=== PATIENT | male | born 1950 | race Caucasian/White ===

== ENCOUNTER 2018-02-26 02:46 | Outpatient (CLI) | payer MEDICARE ==
[~2018-02-26] VITALS: Ht 185.4 cm; Wt 84.1 kg
--- NOTE | ~2018-02-26 | OP ---
PATIENT NAME: Joe BIRCH MEDICAL RECORD: [id number] :54 LOCATION:D.M2 D.2132 ADMISSION DATE:02/26/18 SURGEON: ANA FAJARDO MD DATE OF OPERATION: 02/26/2018 PROCEDURE: Left heart catheterization, selective coronary angiography, PTCA stent report. FINDINGS: Left ventriculography in 30-degree BUENO view, normal wall motion and normal systolic function. CORONARY ANATOMY: LEFT MAIN: Left main is free of disease. LAD: LAD has a tight 90% stenosis with a thrombus burden in its proximal portion. CIRCUMFLEX: Circumflex has an 80% stenosis after takeoff of the OM. RIGHT CORONARY ARTERY: The right coronary artery is a somewhat rudimentary vessel with diffuse disease. IMPRESSION: We will plan intervention of LAD. Circumflex at a later date. DESCRIPTION OF PROCEDURE: A 5-Indonesian sheath was changed for a 6-Indonesian sheath. XB LAD guiding catheter provided good guide catheter support followed by 300 cm Whisper wire was placed across the occluded LAD down a portion of this vessel. A 3.0 x 12 mm Morehouse was used pre-deployment. Stent deployed was a 12-mm 3.0 Integrity up to 14 atmospheres. Final angiography showed excellent resolution of 90% stenosis, no significant residual. MEHDI flow was 3 throughout the procedure. Integrilin was used during the case. Sheath closed with ExoSeal. He will be brought back at a later date for the circumflex. TRANSINT:[id number] Voice Confirmation ID: [id number] DOCUMENT ID: [id number] ANA FAJARDO MD at 0826 CC: [id number] DICTATION DATE: 02/26/18 0848 PREPARED FOODS SUPERVISOR: 02/26/18 1212 DIS IN 02/26/18 [facility] [address] [id number]
--- NOTE | ~2018-02-26 | HP ---
PATIENT: Joe BIRCH MEDICAL RECORD: [id number] ACCOUNT: [id number] LOCATION:[address] : 54 ADMISSION DATE: 02/26/18 HISTORY AND PHYSICAL EXAMINATION HISTORY OF PRESENT ILLNESS: A 67-year-old gentleman with longstanding smoking history, history of obstructive pulmonary disease, transferred from [place] with NSTEMI. Presented with chest pain. There was a pleuritic component; however, CTA showed no evidence of pulmonary embolus. Enzymes continued to rise. Currently pain free. ECG shows mostly ST-T changes. lab animal technologist for further evaluation. PAST MEDICAL HISTORY: 1. History of hypertension. 2. Hyperlipidemia. 3. Obstructive pulmonary disease. ALLERGIES: None known. SOCIAL HISTORY: Lives at [place]. He is able to take care of his ADLs. He does smoke more than a pack a day. REVIEW OF SYSTEMS: The patient reports easy bruising but reports no swollen glands. The patient reports no fever, no night sweats, no significant weight gain, no significant weight loss. No significant exercise tolerance. The patient reports no dry eyes, no irritation, no vision change. Patient reports no difficulty hearing and no ear pain. Patient reports no frequent nose bleeds or nose and sinus problems. Patient reports on arm pain on exertion. No shortness of breath while lying down. No history of heart murmur. Patient reports no cough, no wheezing or coughing up blood. Patient reports no abdominal pain, no vomiting. Normal appetite. No diarrhea and not vomiting blood. No nausea and no constipation. Patient reports no incontinence. No difficulty urinating. No hematuria. No increased frequency. Patient reports no muscle aches. No weakness, no arthralgias, no back pain. No swelling of the extremities. Patient reports no abnormal mole, no jaundice, no rashes. Reports no loss of consciousness. No weakness and no numbness. No seizures, dizziness, or headaches. The patient reports no depression, no sleep disturbance, feeling safe in a relationship and no alcohol abuse. Patient reports on fatigue. Reports no runny nose or sinus pressure. No itching, no hives, and no frequent sneezing. PHYSICAL EXAMINATION: GENERAL: Somewhat unkempt gentleman, in no acute distress. VITAL SIGNS: Blood pressure 138/87, pulse 76 and regular. HEENT: Normocephalic, atraumatic. NECK: No JVD or bruit. HEART: Distant, II/ systolic ejection murmur. LUNGS: Prolonged respiratory phase with expiratory wheezes. ABDOMEN: Soft, nontender. EXTREMITIES: Pulses 2+. There is no edema. IMPRESSION: STEMI, obstructive pulmonary disease. PLAN: Plan for angiography, intervention based on the above. HISTORY AND PHYSICAL [id number] Joe BIRCH TRANSINT:[id number] Voice Confirmation ID: [id number] DOCUMENT ID: [id number] ANA FAJARDO MD at 0826 CC: [id number] DICTATION DATE: 02/26/18 0740 RETORT FURNACE OPERATOR: 02/26/18 0900 DIS IN 02/26/18 [id number] [place] [address]
--- NOTE | ~2018-02-26 | HEMODYNAMI ---
PATIENT:Joe BIRCH MEDICAL RECORD: [id number] : 54 [address] [id number] ADMISSION DATE: 02/26/18 Generatedon:02/26/20188:50 Patient name: Joe BIRCH Patient #: [id number] SSN: : [birth year] Date of study: 02/26/2018 Page: Of Hemodynamic Procedure Report Patient Data Patient Demographics Procedure consent was obtained First Name: Joe Gender: Male Last Name: QUETA : 1950 Middle Initial: R Age: 67 year(s) Patient #: [id number] Race: Unknown Additional ID: [id number] Contact details Address: [address] [place] [address] State: [place] City: [place] Zip code: [address] Past Medical History Allergies: No known allergies Admission Admission Data Admission Date: 02/26/2018 Admission Time: 2:42 Room #: [facility] Lab Results Lab Result Date: 02/26/2018 Lab Result Time: 0:00 Biochemistry Name Units Result Min Max BUN mg/dl 14 --(--*-)-- 7 18 Creatinine mg/dl 0.8 --(-*--)-- 0.6 1.3 CBC Name Units Result Min Max Hemoglobin g/dl 14.4 --(*---)-- 13.5 17.5 Procedure Procedure Types Cath Procedure Diagnostic Procedure [facility] w/Coronaries Sedation Charges Moderate Sedation up to 15 minutes PCI Procedure Coronary Stent Coronary Stent Initial Procedure Description Procedure Date Procedure Date: 02/26/2018 Procedure Start Time: 8:28 Procedure End Time: 8:49 Procedure Staff Name Function Thomas Guajardo MD Performing Physician Estuardo Das RT Monitor Patricia Soto RT Scrub Clara Bonilla RN Nurse Procedure Data Cath Procedure Fluoroscopy Diagnostic fluoroscopy Total fluoroscopy Time: 4 time: 4 min min Diagnostic fluoroscopy Total fluoroscopy dose: 566 dose: 566 mGy mGy Contrast Material Contrast Material Type Amount (ml) Isovue 300 105 Entry Location Entry Primary Successful Side Size Upsize Upsize Entry Closure Succes sful Closure Location (Fr) 1 (Fr) 2 (Fr) Remarks Device Remarks Femoral Right 5 Fr 6 Fr Exoseal artery Short Estimated blood loss: 10 ml Diagnostic catheters Device Type Used For End Catheter Placement MULTIPACK JL 4.0 5Fr Procedure catheter MULTIPACK 3DRC 5Fr Procedure catheter MULTIPACK Pigtail 5 Fr Procedure catheter Procedure Complications No complications Procedure Medications Medication Administration Route Dosage Oxygen NC 2 l/min Lidocaine 2% added to field 20 Heparin Flush Bag added to field 2 bags (1000units/500ml NS) 0.9% NaCl I.V. 100 ml/hr Plavix P.O. 75 mg Heparin Bolus I.V. 4000 units Versed I.V. 1 mg Versed I.V. 1 mg Fentanyl I.V. 50 mcg Fentanyl I.V. 50 mcg Solumedrol I.V. 125 mg Hemodynamics Rest HGB: 14.4 (g/dl) Heart Rate: 76 (bpm) Pressure Samples Time Site Value (mmHg) Purpose Heart Use Rate(bpm) 8:32 LV 107/4,7 Snapshot 79 8:33 AO 105/63(82) Pullback 77 8:33 LV 97/8,11 Pullback 77 Gradients Valve Time Site 1 Site 2 Mean SEP/DFP Peak To Heart Use (mmHg) (sec/min) Peak Rate (mmHg) (bpm) Aortic 8:33 LV AO 0 77 97/8,11 105/63(82) Calculations Valve P-P Mean Valve Index Valve Source Name Gradient Area Flow (cm2) Aortic 0 0 Snapshots Pre Cath Intra NCS Post Cath Vital Signs Time Heart Resp SPO2 etCO2 NIBP Rhythm Pain Sedation Rate (ipm) (%) (mmHg) (mmHg) Status Level (bpm) 8:15:49 73 16 97 27.6 121/73(90) NSR 0 (11) 10(A) , No pain 8:20:32 81 16 96 30.6 109/75(90) NSR 0 (11) 10(A) , No pain 8:25:11 77 17 96 19.4 106/66(79) NSR 0 (11) 10(A) , No pain 8:29:51 74 20 94 22.2 105/67(90) NSR 0 (11) 9(A) , No pain 8:34:30 77 16 94 20.4 108/62(82) NSR 0 (11) 9(A) , No pain 8:39:08 82 14 93 20.8 103/68(78) NSR 0 (11) 9(A) , No pain 8:43:47 80 19 94 23.1 112/73(89) NSR 0 (11) 9(A) , No pain 8:48:25 81 16 96 29.9 111/83(96) NSR 0 (11) 10(A) , No pain Medications Time Medication Route Dose Verified Delivered Reason Notes Effectiveness by by 8:10:54 Plavix P.O. 75 mg Thomas Buffie for [facility] Jason Bonilla RN antiplatelet therapy 8:16:16 Oxygen NC 2 Thomas Buffie used for l/min St Jason Bonilla RN procedure 8:16:23 Lidocaine 2% added 20ml Thomas Buffie used for to vial St Jason Bonilla RN procedure field ANDRADE 8:16:31 Heparin Flush added 2 Thomas Buffie used for Bag to bags St Jason Bonilla RN procedure (1000units/500ml field ANDRADE NS) 8:16:42 0.9% NaCl I.V. 100 Thomas Buffie used for ml/hr St Jason acosta MD 8:25:12 Versed I.V. 1 mg Thomas Buffie for sedation St Jason Bonilla RN, MD 8:25:25 Fentanyl I.V. 50 Thomas Buffie for sedation mcg St Jason Bonilla RN, MD 8:29:19 Versed I.V. 1 mg Thomas Buffie for sedation St Jason Bonilla RN, MD 8:29:28 Fentanyl I.V. 50 hTomas Buffie for sedation mcg [facility] Jason Bonilla RN, MD 8:33:13 Heparin Bolus I.V. 4000 Thomas Buffie for verifie d units St Jason Bonilla RN anticoagulation with dr MD fuller 8:42:36 Solumedrol I.V. 125 Thomas Buffie Per physician for lef t mg St Jason Bonilla RN knee swelling and pain. Procedure Log Time Note 7:48:53 Time tracking: Regular hours (M-F 7:00 - 5:00) 7:48:58 Plan of Care:Hemodynamics will remain stable., Cardiac rhythm will remain stable., Comfort level will be maintained., Respiratory function will remain adequate., Patient/ family verbilizes understanding of procedure., Procedure tolerated without complication., Recovers from procedure without complications.. 7:49:00 Signed procedure consent form obtained from patient. 7:51:11 Patient allergic to No known allergies 7:51:39 Lab Result : Creatinine 0.8 mg/dl 7:51:39 Lab Result : BUN 14 mg/dl 7:51:39 Lab Result : Hemoglobin 14.4 g/dl 7:52:36 Clara Bonilla RN sent for patient. Start room use. 8:02:13 Patient received from Med II to CCL 1 Alert and oriented. Tansferred to table in Supine position. 8:02:14 Warm blankets applied, and phoenix hugger turned on for patient comfort. 8:02:15 Correct patient and procedure confirmed by team. 8:02:16 ECG and BP/O2 sat monitors applied to patient. 8:10:54 Plavix 75 mg P.O. was administered by Clara Bonilla RN; for antiplatelet therapy; 8:14:54 Vital chart was started 8:14:55 Baseline sample Acquired. 8:14:58 Rhythm: sinus rhythm 8:14:59 Full Disclosure recording started 8:15:11 H&P Date Dictated: 02/25/2018 Within 30 days and on chart.. 8:15:11 Pre-procedure instructions explained to patient. 8:15:12 Pre-op teaching completed and patient verbalized understanding. 8:15:13 Family unavailable. 8:15:15 Patient NPO since Midnight. 8:15:18 Is the patient allergic to Iodine/contrast media? No. 8:15:19 Is patient on blood thinner?Yes 8:15:21 ACC The patient was administered the following blood thiners within the last 24 hours: ACCPlavix 8:15:22 Patient diabetic? No. 8:15:25 Previous problem with sedation/anesthesia? No ? 8:15:27 Snore? Yes 8:15:28 Sleep apnea? No 8:15:28 Deviated septum? No 8:15:29 Opens mouth fully? Yes 8:15:30 Sticks out tongue? Yes 8:15:31 Airway obstruction? No ? 8:15:33 Dentures? No ? 8:15:37 Pre procedure: right posterior tibial pulse 2+ Normal; easily identifiable; not easily obliterated 8:15:40 Pre procedure: left posterior tibial pulse 2+ Normal; easily identifiable; not easily obliterated 8:15:41 Patient pain scale 0/10 ?. 8:15:45 IV patent on arrival in left antecubital with 0.9% NaCl at O. 8:15:47 Lab results completed and on chart. 8:15:51 Bilateral groins area was prepped with chlora-prep and draped in sterile fashion 8:15:53 Alarms reviewed by R. N. 8:15:53 Sharps counted by scrub and verified by R.N. 8:15:56 Use device set Femoral Dx 8:15:57 ACIST Syringe (68614) opened to sterile field. 8:15:57 Bag Decanter (2002S) opened to sterile field. 8:15:57 Medline Cath Pack ([id number]) opened to sterile field. 8:15:59 ACIST Hand Control (63359) opened to sterile field. 8:16:00 ACIST Manifold (15675) opened to sterile field. 8:16:01 Tegaderm 4 x 4 (1626W) opened to sterile field. 8:16:03 DIAGNOSTIC Multipack 5Fr catheter set ([id number]) opened to sterile field. 8:16:04 SHEATH Prelude 5Fr 0.035 (WRW-2R-66-035) opened to sterile field. 8:16:08 DIAGNOSTIC WIRE .035 260cm J wire (354976) opened to sterile field. 8:16:16 Oxygen 2 l/min NC was administered by Clara Bonilla RN; used for procedure; 8:16:23 Lidocaine 2% 20ml vial added to field was administered by Clara Bonilla RN; used for procedure; 8:16:31 Heparin Flush Bag (1000units/500ml NS) 2 bags added to field was administered by Clara Bonilla RN; used for procedure; 8:16:42 0.9% NaCl 100 ml/hr I.V. was administered by Clara Bonilla RN; used for procedure; 8:22:47 Physician paged 8:22:50 Zero performed for pressure channel P1 8:24:09 Physician arrived 8:24:09 --------ALL STOP TIME OUT------ 8:24:09 Final Timeout: patient, procedure, and site verified with staff and physician. All members of the team are in agreement. 8:24:11 Bilateral groins site verified by team. 8:24:13 Physical assessment completed. ASA score P 2 - A patient with mild systemic disease as per Thomas Guajardo MD. 8:24:16 Sedation plan: IV Moderate Sedation Medication:Versed, Fentanyl 8::12 Versed 1 mg I.V. was administered by Clara Bonilla RN; for sedation; 8::25 Fentanyl 50 mcg I.V. was administered by Clara Bonilla RN; for sedation; 8::12 Procedure started. 8::14 Local anesthetic to right femoral artery with Lidocaine 2% by Thomas Guajardo MD.INITIAL ACCESS ONLY 8::25 A 5 Fr sheath was inserted into the Right Femoral artery 8:29:10 A MULTIPACK JL 4.0 5Fr catheter was advanced over the wire and used for Procedure. 8:29:19 Versed 1 mg I.V. was administered by Clara Bonilla RN; for sedation; 8:: Fentanyl 50 mcg I.V. was administered by Clara Bonilla RN; for sedation; 8:29:58 LCA angiography performed. 8:31:43 Catheter exchanged over wire. 8:31:49 A MULTIPACK 3DRC 5Fr catheter was advanced over the wire and used for Procedure. 8:31:52 RCA angiography performed. 8:31:54 Catheter exchanged over wire. 8:31:58 A MULTIPACK Pigtail 5 Fr catheter was advanced over the wire and used for Procedure. 8:32:13 SHEATH Prelude 6Fr 0.035 (BBD-5M-20-035) opened to sterile field. 8:32:13 INFLATOR Merit BasixCompak (LH8682) opened to sterile field. 8:32:37 GUIDE 6FR EBU 3.5 catheter ([id number]) opened to sterile field. 8:33:08 LV gram done using BUENO 8:33:11 Injector settings: Ml/sec: 10, Volume: 20, 8:33:13 Heparin Bolus 4000 units I.V. was administered by Clara Bonilla RN; for anticoagulation; verified with dr fuller 8:33:16 EF : 55 % 8:33:19 Catheter removed. 8:33:27 Sheath upsized to a 6 Fr Short. 8:34:06 WHISPER 300cm guide wire ([id number]) opened to sterile field. 8:35:05 6 Fr ebu 3.5 guide catheter was inserted over the wire 8:35:49 whisper wire advanced. 8:36:56 Wire advanced across lesion. 8:38:58 Inflate balloon Inflation number: 1 A EMERGE OTW 3.0 x 12 balloon ([id number]) was prepped and advanced across the Prox LAD, then inflated to 14 TIFFANIE for 0:30 (min:sec). 8:39:17 Balloon removed over the wire. 8:42:19 Place stent Inflation Number: 2 A INTEGRITY OTW 3.0 X 12 stent ([id number]) was prepped and advanced across the Prox LAD. The stent was deployed at 14 TIFFANIE for 0:30 (min:sec). 8:42:36 Solumedrol 125 mg I.V. was administered by Clara Bonilla RN; Per physician; for left knee swelling and pain. 8:42:40 Stent catheter was removed intact over wire. 8:42:41 Wire removed. 8:42:41 Guide catheter removed. 8:42:57 EXOSEAL 6Fr (EX600) opened to sterile field. 8:43:05 Sheath removed intact; hemostasis achieved with Exoseal to the Right Femoral artery. 8:43:07 Procedure ended.(Physican Out) 8:43:20 Fluoroscopy time 04.00 minutes. 8:43:24 Fluoroscopy dose: 566 mGy 8:43:24 Flurop Dose total: 566 8:43:27 Contrast amount:Isovue 300 105ml. 8:43:29 Sharps counted by scrub and verified by R.N. 8:43:30 Insertion/operative site no bleeding no hematoma. 8:43:32 Post-op/insertion site Right Femoral artery dressed using a 4 x 4 and Tegaderm. 8:43:35 Post right femoral artery:stable, soft, clean and dry 8:43:50 Post Procedure Pulses reassessed and unchanged 8:43:52 Post-procedure physical assessment completed. ASA score P 2 - A patient with mild systemic disease as per Thomas Guajardo MD. 8:43:54 Post procedure rhythm: unchanged. 8:43:56 Estimated blood loss: 10 ml 8:43:58 Post procedure instruction explained to patient.Patient verbalizes understanding. 8:43:58 Patient needs reinforcement of post procedure teaching. 8:44:06 Procedure type changed to Cath procedure, Diagnostic procedure, LHC, LHC w/Coronaries, Sedation Charges, Moderate Sedation up to 15 minutes, PCI procedure, Coronary Stent, Coronary Stent Initial 8:48:53 Procedure and supply charges have been captured, reviewed, submitted and are correct. 8:48:55 Procedure Complication : No complications 8:48:58 Vital chart was stopped 8:48:58 See physician's report for complete and final results. 8:48:59 Report given to PCU. 8:49:02 Patient transfered to PCU with Stretcher. 8:49:03 Procedure ended. 8:49:03 Full Disclosure recording stopped 8:49:07 End room use (Document Last) Intervention Summary Intervention Notes Time ActionType Lesion and Equipment Action# Pressure Duration Attributes Used 8:38:58 Inflate Prox LAD EMERGE OTW 1 14 00:30 balloon 3.0 x 12 balloon ([id number]) 8:42:19 Place stent Prox LAD INTEGRITY 2 14 00:30 OTW 3.0 X 12 stent ([id number]) Device Usage Item Name Manufacture Quantity Catalog Number Hospital Part Current Minimal Lot# / Charge Number Stock Stock Serial# Code ACIST Syringe Acist 1 03816 [id number] 038923 135188 20 (82328) [employer] Inc Bag Decanter Microtek 1 2001S 176045 96324 208515 5 (2001S) Medical Inc. Medline Cath Cardinal 1 [id number] 715702 60799 710395 5 Pack Health ([id number]) ACIST Hand Acist 1 63651 628125 339944 240751 5 Control (79486) [employer] Inc ACIST Manifold Acist 1 61020 494164 899575 537146 5 (69496) [employer] Systems Inc Tegaderm 4 x 4 3M 1 1626W 960997 089387 464024 5 (1626W) DIAGNOSTIC Cardinal 1 HD9121 481818 73531 887150 30 Multipack 5Fr Health catheter set (XL9885) SHEATH Prelude Merit 1 BEH-0L-35-035 790008 760901 307425 5 5Fr 0.035 Medical (QFV-2W-06-035) DIAGNOSTIC WIRE St Eddie 1 591571 649743 386711 295422 30 .035 260cm J wire (458253) MULTIPACK JL Cardinal 1 903807 5 4.0 5Fr Health catheter MULTIPACK 3DRC Cardinal 1 357918 5 5Fr catheter Health MULTIPACK Cardinal 1 946114 5 Pigtail 5 Fr Health catheter SHEATH Prelude Merit 1 IBA-9J-31-35 565717 2586210 990784 5 6Fr 0.035 Medical (VAP-2F-52035) INFLATOR Merit Merit 1 CE5911 868417 058248 453861 15 BasixComthe [facility] Medical (LH6095) GUIDE 6FR EBU Medtronic 1 [id number] 833402 30707 305946 3 3.5 catheter ([id number]) WHISPER 300cm Theodore 1 [id number] 801273 663748 293630 5 guide wire Vascular ([id number]) EMERGE OTW 3.0 [place] 1 [id number] 450978 497787 435769 5 [id number] x 12 balloon Scientific ([id number]) INTEGRITY OTW Medtronic 1 [id number] 807879 082167 8 [id number] 3.0 X 12 stent ([id number]) EXOSEAL 6Fr Cardinal 1 EX600 024716 606154 709528 10 (EX600) Health Signature Audit [place] Stage Time Signature Unsigned Intra-Procedure 02/26/2018 Estuardo Das 8:50:03 AM RT(R) Signatures Monitor : Estuardo Das RT Signature : Date : Time : [address] [place] [address]
[2018-02-26 03:28] VITALS: BP 138/87; Ht 185.4 cm; Wt 84.1 kg
[2018-02-26 04:00] LABS: BASOPHILS 0.4 % (0-2); HEMATOCRIT 42.4 % (42.0-54.0); HEMOGLOBIN 14.4 g/dL (13.5-17.5); IMMATURE GRANULOCYTES 0.4 % (0-5); LYMPHOCYTES 16.9 % (15-50); MCV 85.5 fL (80.0-100.0); MEAN PLATELET VOLUME 10.7 fL (7.4-10.4); NEUTROPHILS 68.3 % (40-80); PLATELET COUNT 314 10x3/uL (130-400); RBC 4.96 10x6/uL (4.20-6.10); RDW 14.5 % (11.5-14.5); WBC 8.1 10x3/uL (4.8-10.8)
[2018-02-26 04:09] LABS: INR 1.09 (0.85-1.17); PROTIME 13.7 SECONDS (11.6-15.0)
[2018-02-26 04:10] LABS: APTT 47.3 SECONDS (22.8-39.4)
[2018-02-26 04:11] LABS: D-DIMER-QUANTITATIVE 3.47 ug/mLFEU (0.20-0.54)
[2018-02-26 04:15] LABS: ALBUMIN 3.4 g/dL (3.4-5.0); ALKALINE PHOSPHATASE 120 U/L (46-116); ALT (SGPT) 17 U/L (10-68); CALC OSMOLALITY 273 mosm/kg (275-300); CALCIUM 8.3 mg/dL (8.5-10.1); CARBON DIOXIDE 26.7 mmol/L (21.0-32.0); CHLORIDE - SERUM 103 mmol/L (98-107); CREATININE - SERUM 0.8 mg/dL (0.6-1.3); GLUCOSE 108 mg/dL (74-106); POTASSIUM - SERUM 3.9 mmol/L (3.5-5.1); PROTEIN - SERUM 7.4 g/dL (6.4-8.2); SODIUM 136 mmol/L (136-145); UREA NITROGEN 14 mg/dL (7-18); eGFR NON AFRICAN AMERICAN > 90 mL/min (90-120)
[2018-02-26 04:33] LABS: CKMB 60.4 U/L (0.0-3.6); CREATINE KINASE 414 UL (21-232)
[2018-02-26 04:39] LABS: TROPONIN-I 10.681 ng/mL (0.000-0.060)
[2018-02-26 09:01] VITALS: BP 123/80
[2018-02-26 09:35] VITALS: BP 100/69
[2018-02-26 12:17] VITALS: BP 121/83
[2018-02-26 15:17] VITALS: BP 110/72
[2018-02-26] MEDS ORDERED: PLAVIX75 MG PO (16:16)
[2018-02-26] MEDS ORDERED: MEDROL DOSE PACK4 MG PO (16:51)
[2018-02-26 17:16] LABS: CKMB 40.1 U/L (0.0-3.6); CREATINE KINASE 276 UL (21-232); TROPONIN-I 5.144 ng/mL (0.000-0.060)
== END 2018-02-26 21:10 | disposition home or self-care (01) ==
LOC: OBSVTIME → D.CATH 02:46 → EDSTATUS 09:15 → D.CATH 21:10 → D.M2 21:10
PROVIDERS: Internal Medicine Interventional Cardiology
DX: I21.3 ST elevation (STEMI) myocardial infarction of unspecified site (principal); I25.10 Atherosclerotic heart disease of native coronary artery without angina pectoris; I10 Essential (primary) hypertension; E78.5 Hyperlipidemia, unspecified; J44.9 Chronic obstructive pulmonary disease, unspecified

== ENCOUNTER 2019-09-04 17:28 | Emergency (ER) | payer MEDICARE ==
[~2019-09-04] VITALS: Ht 185.4 cm; Wt 79.5 kg
[~2019-09-04 17:28] MED LIST: MEDROL DOSE PACK4 MG PO; PLAVIX75 MG PO
[2019-09-04 17:32] VITALS: Ht 185.4 cm; Wt 79.5 kg
[2019-09-04] MEDS ORDERED: CIPRO500 MG PO (17:36)
[2019-09-04] MEDS ORDERED: NAPROSYN500 MG PO ×2 (17:37→19:47)
[2019-09-04] MEDS ORDERED: HYDROCODON-ACE1 EAC7 PO (17:37)
[2019-09-04 18:23] LABS: BASOPHILS 0.4 % (0-2); EOSINOPHILS 3.3 % (0-7); HEMATOCRIT 39.2 % (42.0-54.0); HEMOGLOBIN 13.1 g/dL (13.5-17.5); IMMATURE GRANULOCYTES 0.8 % (0-5); MCH 29.3 pg (26.0-34.0); MCHC 33.4 g/dL (31.0-37.0); MCV 87.7 fL (80.0-100.0); MEAN PLATELET VOLUME 10.1 fL (7.4-10.4); MONOCYTES 9.8 % (2-11); NEUTROPHILS 72.7 % (40-80); RBC 4.47 10x6/uL (4.20-6.10); RDW 16.2 % (11.5-14.5); WBC 12.2 10x3/uL (4.8-10.8)
[2019-09-04 18:24] LABS: PLATELET COUNT 677 10x3/uL (130-400)
[2019-09-04 18:34] LABS: CALC OSMOLALITY 272 mosm/kg (275-300); CALCIUM 9.8 mg/dL (8.5-10.1); CARBON DIOXIDE 26.6 mmol/L (21.0-32.0); CHLORIDE - SERUM 96 mmol/L (98-107); CREATININE - SERUM 0.8 mg/dL (0.6-1.3); GLUCOSE 112 mg/dL (74-106); POTASSIUM - SERUM 3.9 mmol/L (3.5-5.1); SODIUM 135 mmol/L (136-145); UREA NITROGEN 18 mg/dL (7-18); eGFR NON AFRICAN AMERICAN > 90 mL/min (90-120)
[2019-09-04 18:42] LABS: ALBUMIN 2.4 g/dL (3.4-5.0); ALKALINE PHOSPHATASE 266 U/L (46-116); ALT (SGPT) 50 U/L (10-68); BILIRUBIN - TOTAL 0.48 mg/dL (0.2-1.3); PROTEIN - SERUM 8.4 g/dL (6.4-8.2)
[2019-09-04 19:25] LABS: ERYTHROCYTE SEDIMENTATION RATE 121 mm/hr (0-20)
[2019-09-04] MEDS ORDERED: PREDNISONE20 MG PO (19:47)
[2019-09-04 21:37] VITALS: BP 124/78
== END 2019-09-04 21:37 | disposition home or self-care (01) ==
LOC: D.ER 17:28
PROVIDERS: Emergency Medicine
DX: M25.50 Pain in unspecified joint (principal); R53.83 Other fatigue; I25.10 Atherosclerotic heart disease of native coronary artery without angina pectoris; Z72.0 Tobacco use

== ENCOUNTER 2019-12-29 10:58 | Outpatient (CLI) | payer MEDICARE ==
[~2019-12-29] VITALS: Ht 185.4 cm; Wt 70.5 kg
--- NOTE | ~2019-12-29 | HEMODYNAMI ---
PATIENT:Joe BIRCH MEDICAL RECORD: [id number] : 54 LOCATION:D.FAUSTO ADMISSION DATE: 12/29/19 Generatedon:12/29/201913:53 Patient name: Joe BIRCH Patient #: [id number] SSN: : [birth year] Date of study: 12/29/2019 Page: Of Hemodynamic Procedure Report Patient Data Patient Demographics Procedure consent was obtained First Name: Joe Gender: Male Last Name: QUETA : 1950 Middle Initial: R Age: 69 year(s) Patient #: [id number] Race: Additional ID: [id number] Contact details Address: [address] [place] [address] State: [place] City: [place] Zip code: [address] Past Medical History Allergies: No known allergies Admission Admission Data Admission Date: 12/29/2019 Admission Time: 10:58 Arrival Date: 12/29/2019 Arrival Time: 0:00 Admit Source: Other Insurance Payor: Medicare [facility] #: [id number] Height (in.): 72.83 BSA: 1.92 (m2) Height (cm.): 185 BMI: 20.45 (kg/m2) Weight (lbs.): 154.32 Weight (kg.): 70 Lab Results Lab Result Date: 12/29/2019 Lab Result Time: 0:00 Biochemistry Name Units Result Min Max BUN mg/dl 11 --(-*--)-- 7 18 Creatinine mg/dl 0.7 --(*---)-- 0.6 1.3 eGFR ml/min 90 --(*---)-- 90 120 NONAFRICAN CBC Name Units Result Min Max Hematocrit % 39.5 -*(----)-- 42 54 Hemoglobin g/dl 12.1 *-(----)-- 13.5 17.5 Procedure Procedure Types Cath Procedure Diagnostic Procedure LHC LH w/Coronaries Sedation Charges Moderate Sedation up to 15 minutes PCI Procedure Coronary Stent Coronary Stent Initial Hemochron ACT Test Procedure Description Procedure Date Procedure Date: 12/29/2019 Procedure Start Time: 13:35 Procedure End Time: 13:52 Procedure Staff Name Function Thomas Guajardo MD Performing Physician Marina Rodriguez RT Monitor Danisha Thomas RN Nurse Jazlyn Mercer RT Scrub Procedure Data Cath Procedure Fluoroscopy Diagnostic fluoroscopy Total fluoroscopy Time: 2.2 time: 2.2 min min Diagnostic fluoroscopy Total fluoroscopy dose: 406 dose: 406 mGy mGy Contrast Material Contrast Material Type Amount (ml) Isovue 300 76 Entry Location Entry Primary Successful Side Size Upsize Upsize Entry Closure Succes sful Closure Location (Fr) 1 (Fr) 2 (Fr) Remarks Device Remarks Femoral Right 5 Fr 6 Fr Exoseal artery Short Estimated blood loss: 10 ml Diagnostic catheters Device Type Used For End Catheter Placement MULTIPACK JL 4.0 5Fr Left Coronary catheter Angiography MULTIPACK 3DRC 5Fr Right Coronary catheter Angiography MULTIPACK Pigtail 5 Fr LV Angiography catheter Procedure Complications No complications Procedure Medications Medication Administration Route Dosage 0.9% NaCl I.V. 100 ml/hr Oxygen etCO2 Nasal cannula 2 l/min Lidocaine 2% added to field 20 Heparin Flush Bag added to field 2 bags (1000units/500ml NS) Versed I.V. 2 mg Fentanyl I.V. 50 mcg Versed I.V. 2 mg Fentanyl I.V. 50 mcg Heparin Bolus I.V. 5000 units Integrilin (Bolus I.V. 6.2 ml 2mg/ml) Integrilin (Bolus wasted 3.8 ml 2mg/ml) Plavix P.O. 600 mg Hemodynamics Rest BSA: 1.92 (m2) O2 Consumption: Estimated: 230.01 (ml/min) O2 Consumption indexed : Estimated:119.8 (ml/min/m) Heart Rate: 79 (bpm) Pressure Samples Time Site Value (mmHg) Purpose Heart Use Rate(bpm) 13:39 LV 103/-2,2 Snapshot 74 13:40 AO 97/63(78) Pullback 83 13:40 LV 99/21,29 Pullback 83 Gradients Valve Time Site 1 Site 2 Mean SEP/DFP Peak To Heart Use (mmHg) (sec/min) Peak Rate (mmHg) (bpm) Aortic 13:40 LV AO 4 8 2 83 99/21,29 97/63(78) Calculations Valve P-P Mean Valve Index Valve Source Name Gradient Area Flow (cm2) Aortic 2 4 2 4 Snapshots Pre Cath Intra NCS Post Cath Vital Signs Time Heart Resp SPO2 etCO2 NIBP (mmHg) Rhythm Pain Sedation Rate (ipm) (%) (mmHg) Status Level (bpm) 13:23:40 92 17 100 31 134/86(118) NSR 0 (11) 10(A) , No pain 13:27:54 87 18 99 23.9 131/81(102) NSR 0 (11) 10(A) , No pain 13:32:10 86 20 99 13.4 126/79(97) NSR 0 (11) 10(A) , No pain 13:36:22 91 15 99 30.7 112/82(99) NSR 0 (11) 10(A) , No pain 13:40:32 87 16 96 27.7 113/73(90) NSR 0 (11) 10(A) , No pain 13:44:42 82 16 97 25.4 108/69(78) NSR 0 (11) 10(A) , No pain 13:48:46 95 15 100 25.4 128/85(114) NSR 0 (11) 10(A) , No pain Medications Time Medication Route Dose Verified Delivered Reason Notes Effectiveness by by 13:22:43 0.9% NaCl I.V. 100 Thomas Danisha used for ml/hr [place] [facility] procedure RN 13:22:51 Oxygen etCO2 2 Thomas Danisha used for Nasal l/min [facility] procedure cannula MD JONES 13:22:55 Lidocaine 2% added 20ml Thomas Guzman for local to vial [facility] anesthetic field MD ANDRADE 13:23:00 Heparin Flush added 2 Thomas Thomas used for Bag to bags [facility] procedure (1000units/500ml field MD ANDRADE NS) 13:34:46 Versed I.V. 2 mg Thomas Danisha for sedation [facility] Thomas MD RN 13:34:57 Fentanyl I.V. 50 Thomas Danisha for sedation mcg [facility] Thomas MD RN 13:39:35 Versed I.V. 2 mg Thomas Danisha for sedation [facility] Thomas MD, RN 13:39:47 Fentanyl I.V. 50 Thomas Danisha for sedation mcg [facility] Thomas MD RN 13:42:54 Heparin Bolus I.V. 5000 Thomas Raman for verif ied units [facility] Jason Thomas anticoagulation with Dr. MD ROBERT Brown 13:43:08 Integrilin I.V. 6.2 Thomas Raman for (Bolus 2mg/ml) ml [facility] Thomas antiplatelet RN therapy 13:43:20 Integrilin wasted 3.8 Thomas Raman for (Bolus 2mg/ml) ml [facility] Thomas antiplatelet RN therapy 13:43:26 Plavix P.O. 600 [address] for mg [facility] Thomas antiplatelet RN therapy Procedure Log Time Note 12:41:27 Informed consent obtained and on chart 12:42:44 Arrival Date: 12/29/2019 12:00:00 AM 12:43:35 Insurance Payor : Medicare 12:47:14 Patient Height : 72.83 inches 12:47:23 Patient Weight : 154.32 lbs 12:47:27 Admit Source: Other 12:49:57 Lab Result : eGFR NONAFRICAN 90 ml/min 12:49:57 Lab Result : Hemoglobin 12.1 g/dl 12:49:57 Lab Result : BUN 11 mg/dl 12:49:57 Lab Result : Creatinine 0.7 mg/dl 12:49:57 Lab Result : Hematocrit 39.5 % 12:50:53 Patient allergic to No known allergies 12:52:34 Procedure Status Elective Heart Cath (OP). 12:52:42 Time tracking: Regular hours (M-F 7:00 - 5:00) 13:05:18 Risk of Mortality: 0.1 13:05:23 Risk of blood transfusion: 3.5 13:05:29 Risk of MANOJ: 1.3 13:05:37 Lab results completed and on chart. 13:09:29 Jazlyn ROCK(R) sent for patient. Start room use. 13:10:11 ACC Patient presents with No angina; no symptoms CCS Anginal Class 0--No symptoms, no angina. 13:13:58 Plan of Care:Hemodynamics will remain stable., Cardiac rhythm will remain stable., Comfort level will be maintained., Respiratory function will remain adequate., Patient/ family verbilizes understanding of procedure., Procedure tolerated without complication., Recovers from procedure without complications.. 13:14:05 Patient received from Pre/Post Procedure Room to CCL 1 Alert and oriented. Tansferred to table in Supine position. 13:14:07 Warm blankets applied, and phoenix hugger turned on for patient comfort. 13:14:08 Correct patient and procedure confirmed by team. 13:14:08 ECG and BP/O2 sat monitors applied to patient. 13:22:35 Vital chart was started 13:22:43 0.9% NaCl 100 ml/hr I.V. was administered by Danisha Thomas RN; used for procedure; Verbal order read back and verified. 13:22:51 Oxygen 2 l/min etCO2 Nasal cannula was administered by Danisha Thomas RN ; used for procedure; Verbal order read back and verified. 13:22:55 Lidocaine 2% 20ml vial added to field was administered by Thomas Guajardo MD; for local anesthetic; Verbal order read back and verified. 13:23:00 Heparin Flush Bag (1000units/500ml NS) 2 bags added to field was administered by Thomas Guajardo MD; used for procedure; Verbal order read back and verified. 13:24:17 Baseline sample Acquired. 13:24:56 Rhythm: sinus rhythm 13:25:03 Full Disclosure recording started 13:25:04 - 13:25:11 H&P Date Dictated: 12/29/2019 H&P Addendum completed by physician on day of procedure. (MUST COMPLETE FOR ALL OUTPATIENTS), New H&P dictated by physician.. 13:25:48 Pre-procedure instructions explained to patient. 13:25:49 Pre-op teaching completed and patient verbalized understanding. 13:25:51 Family unavailable. 13:25:54 Patient NPO since Midnight. 13:26:01 Is the patient allergic to Iodine/contrast media? No. 13:26:04 Was the patient premedicated? Yes 13:26:07 Is patient on blood thinner?No 13:26:42 Patient diabetic? No. 13:26:46 ----Pre-sedation anethsthesia assessment.---- 13::51 Previous problem with sedation/anesthesia? No ? 13:26:56 Snore? Yes 13:26:58 Sleep apnea? No 13:27:05 Deviated septum? Unknown 13:27:07 Opens mouth fully? Yes 13:27:10 Sticks out tongue? Yes 13:27:22 Airway obstruction? Yes COPD 13:27:29 Dentures? No ? 13:27:36 Pre procedure: right dorsailis pedis pulse 2+ Normal; easily identifiable; not easily obliterated 13:27:53 IV patent on arrival in left hand with 0.9% NaCl at [facility]. 13:28:01 Stress Test: no; N/A ? 13:28:06 Right groin area was prepped with chlora-prep and draped in sterile fashion 13:28:08 Alarms reviewed by R. N. 13:28:08 Sharps counted by scrub and verified by R.N. 13:33:25 Physician arrived 13:33:26 --------ALL STOP TIME OUT------ 13:33:27 Final Timeout: patient, procedure, and site verified with staff and physician. All members of the team are in agreement. 13:33:30 Right groin site verified by team. 13:33:35 Fire Safety Assessment: A--An alcohol-based skin anteseptic being used preoperatively., C--Open oxygen or nitrous oxide is being used., D--An ESU, laser, or fiber-optic light is being used. 13:33:41 Physical assessment completed. ASA score P 2 - A patient with mild systemic disease as per Thomas Guajardo MD. 13:33:45 1) 90+ Normal kidney functon but urine findings or structural abnormalities or genetic trait point to kidney disease. 13:33:51 Maximum allowable contrast dose (3.7 X eGFR X 0.75)250 ml. 13:33:57 Sedation plan: IV Moderate Sedation Medication:Versed, Fentanyl 13:34:04 Use device set Femoral Dx 13:34:06 ACIST Syringe (13412) opened to sterile field. 13:34:07 Bag Decanter () opened to sterile field. 13:34:08 Medline Cath Pack ([id number]) opened to sterile field. 13:34:09 ACIST Hand Control (27824) opened to sterile field. 13:34:10 ACIST Manifold (94100) opened to sterile field. 13:34:11 DIAGNOSTIC Multipack 5Fr catheter set (OZ5428) opened to sterile field. 13:34:12 Tegaderm 4 x 4 (1626W) opened to sterile field. 13:34:14 SHEATH 5FR Wykoff (JGN375) opened to sterile field. 13:34:15 EMERALD Guide Wire (416-757) opened to sterile field. 13:34:46 Versed 2 mg I.V. was administered by Danisha Thomas RN; for sedation; Verbal order read back and verified. 13:34:57 Fentanyl 50 mcg I.V. was administered by Danisha Thomas RN; for sedation ; Verbal order read back and verified. 13:35:45 Procedure started. 13:35:51 Local anesthetic to right femoral artery with Lidocaine 2% by Thomas Gomez MD.INITIAL ACCESS ONLY 13:35:56 Zero performed for pressure channel P1 13:36:19 A 5 Fr sheath was inserted into the Right Femoral artery 13:36:31 Zero performed for pressure channel P1 13:36:47 A MULTIPACK JL 4.0 5Fr catheter was advanced over the wire and used for Left Coronary Angiography. 13:36:53 LCA angiography performed. 13:36:59 Injector settings: Ml/sec: 3, Volume: 6, 13:37:38 Zero performed for pressure channel P1 13:37:56 Catheter removed. 13:38:02 A MULTIPACK 3DRC 5Fr catheter was advanced over the wire and used for Right Coronary Angiography. 13:38:31 RCA angiography performed. 13:38:36 Injector settings: Ml/sec: 3, Volume: 6, 13:38:38 Catheter removed. 13:38:49 A MULTIPACK Pigtail 5 Fr catheter was advanced over the wire and used for LV Angiography. 13:39:02 LV gram done using BUENO 13:39:07 Injector settings: Ml/sec: 5, Volume: 15, 13:39:35 Versed 2 mg I.V. was administered by Danisha Thomas RN; for sedation; Verbal order read back and verified. 13:39:35 LV hemodynamics recorded. 13:39:46 EF : 55 % 13:39:47 Fentanyl 50 mcg I.V. was administered by Danisha Thomas RN; for sedation ; Verbal order read back and verified. 13:39:57 Catheter removed. 13:39:58 Proceeding to intervention. 13:40:14 SHEATH 6FR Wykoff (BOC876) opened to sterile field. 13:40:22 INFLATOR Merit BasixCompak (DB5165) opened to sterile field. 13:40:40 GUIDE 6FR XBLAD 3.5 catheter ([id number]) opened to sterile field. 13:41:01 WHISPER 300cm guide wire ([id number]) opened to sterile field. 13:41:18 ACC Pre-intervention MEHDI Flow is 3. 13:41:42 Sheath upsized to a 6 Fr Short. 13:41:52 6 Fr XBLAD3.5 guide catheter was inserted over the wire 13:42:16 Pre PCI Site: [place] pCirc has 80% stenosis. 13:42:27 WHISPER 300 wire advanced. 13:42:54 Heparin Bolus 5000 units I.V. was administered by Danisha Thomas RN; for anticoagulation; verified with Dr. Brown Verbal order read back and verified. 13:43:08 Integrilin (Bolus 2mg/ml) 6.2 ml I.V. was administered by Danisha Thomas RN; for antiplatelet therapy; Verbal order read back and verified. 13:43:20 Integrilin (Bolus 2mg/ml) 3.8 ml wasted was administered by Danisha Thomas RN; for antiplatelet therapy; Verbal order read back and verified. 13:43:26 Plavix 600 mg P.O. was administered by Danisha Thomas RN; for antiplatelet therapy; Verbal order read back and verified. 13:44:05 Wire advanced across lesion. 13:44:26 Place stent Inflation Number: 1 A INTEGRITY RX 3.0 x 15 stent ([id number]) was prepped and advanced across the Prox CX . The stent was deployed at 14 TIFFANIE for 0:18 (min:sec) . 13:45:02 Inflation number: 2 The stent balloon was then re-inflated across the Prox CX to 4 TIFFANIE for 0:00 (min:sec) . 13:45:50 Stent catheter was removed intact over wire. 13:45:53 ACC Post-intervention MEHID Flow is 3. 13:46:05 Post PCI Site: [place] pCirc has 0% stenosis. 13:46:13 EXOSEAL 6Fr (EX600) opened to sterile field. 13:46:22 Wire removed. 13:46:23 Guide catheter removed. 13:46:49 Sheath removed intact; hemostasis achieved with Exoseal to the Right Femoral artery. 13:46:53 Procedure ended.(Physican Out) 13:47:44 Contrast amount:Isovue 300 76ml. 13:48:07 Maximum allowable dose exceeded? No. 13:48:17 Fluoroscopy time 02.20 minutes. 13:48:24 Flurop Dose total: 406 13:48:24 Fluoroscopy dose: 406 mGy 13:48:35 Dose Area Product 34496 mGy/cm. 13:48:38 Sharps counted by scrub and verified by R.N. 13:48:40 Insertion/operative site no bleeding no hematoma. 13:48:46 Post-op/insertion site Right Femoral artery dressed using a 4 x 4 and Tegaderm. 13:48:52 Post right femoral artery:stable 13:48:55 Post Procedure Pulses reassessed and unchanged 13:49:00 Post-procedure physical assessment completed. ASA score P 2 - A patient with mild systemic disease as per Thomas Guajardo MD. 13:49:03 ACT drawn and resulted at 228 seconds. (normal therapeutic range 180-24 0 seconds). 13:49:05 Post procedure rhythm: unchanged. 13:49:13 Estimated blood loss: 10 ml 13:49:18 Post procedure instruction explained to patient.Patient verbalizes understanding. 13:49:24 Patient needs reinforcement of post procedure teaching. 13:49:57 Procedure type changed to Cath procedure, Diagnostic procedure, [facility], C w/Coronaries, Sedation Charges, Moderate Sedation up to 15 minutes, PCI procedure, Coronary Stent, Coronary Stent Initial, Hemochron ACT Test 13:50:21 Procedure and supply charges have been captured, reviewed, submitted an d are correct. 13:51:36 Procedure Complication : No complications 13:51:41 Vital chart was stopped 13:51:45 [facility] Findings: MVD- PCI performed (see procedure note) 13:51:50 Operative report dictated upon procedure completion. 13:51:50 See physician's report for complete and final results. 13:51:52 Report given to Pre/Post Procedure Room. 13:51:58 Patient transfered to Pre/Post Procedure Room with Stretcher. 13:52:01 Procedure ended. 13:52:01 Full Disclosure recording stopped 13:52:17 ACC-PCI Only Patient was given prescriptions, or instructed by Thomas Guajardo MD to start/continue the following medications upon discharge: Plavix 13:52:18 End room use (Document Last) Intervention Summary Intervention Notes Time ActionType Lesion and Equipment Action# Pressure Duration Attributes Used 13:44:26 Place stent Prox CX INTEGRITY RX 1 14 00:18 3.0 x 15 stent ([id number]) 13:45:02 Reinflate Prox CX INTEGRITY RX 2 4 00:00 stent 3.0 x 15 balloon stent ([id number]) Device Usage Item Name Manufacture Quantity Catalog Hospital Part Current Minimal Lot# / Number Charge Number Stock Stock Serial# Code ACIST Acist 1 73430 046725 949803 034994 20 Syringe Medical (82086) Systems Inc Bag Decanter Microtek 1 2001S 061545 99089 295469 5 (2001S) Medical Inc. Medline Cath Medline 1 [id number] 354434 84901 782581 5 Pack ([id number]) ACIST Hand Acist 1 86116 666162 882616 069764 5 Control Medical (57750) Systems Inc ACIST Acist 1 18461 924916 175438 523632 5 Manifold Medical (50075) Systems Inc DIAGNOSTIC Cardinal 1 UW8750 616598 26493 273407 30 Multipack Health 5Fr catheter set (DK0631) Tegaderm 4 x 3M 1 1626W 867366 430535 433843 5 4 (1626W) SHEATH 5FR Terumo 1 YHR432 121130 640933 470650 5 Wykoff (BAR669) EMERALD Cardinal 1 502-455 930865 851952 725966 5 Guide Wire Health (502455) MULTIPACK JL Cardinal 1 510578 5 4.0 5Fr Health catheter MULTIPACK Cardinal 1 797716 5 3DRC 5Fr Health catheter MULTIPACK Cardinal 1 249569 5 Pigtail 5 Fr Health catheter SHEATH 6FR Terumo 1 FVF817 840932 942343 644611 40 Wykoff (DEW153) INFLATOR [facility] 1 AR3044 488497 159231 364550 [address] [facility] BasixCompak (DM6132) GUIDE 6FR Cardinal 1 35910934 649372 855010 394278 10 XBLAD 3.5 Health catheter (40618596) WHISPER Theodore 1 [id number] 322386 991643 029945 5 300cm guide Vascular wire (3727373BU) INTEGRITY RX Medtronic 1 [id number] 202471 634009 310797 5 [id number] 3.0 x 15 stent ([id number]) EXOSEAL 6Fr Cardinal 1 EX600 827107 418247 590597 10 (EX600) Health Signature Audit [place] Stage Time Signature Unsigned Intra-Procedure 12/29/2019 Marina 1:52:44 PM Jennifer RT(R) (CV) Intra-Procedure 12/29/2019 Danisha Thomas 1:53:13 PM RN Intra-Procedure 12/29/2019 Thomas Cedillo 1:53:41 PM Jason ANDRADE [facility] [address] [place] [address]
[~2019-12-29 10:58] MED LIST changes: +CIPRO500 MG PO; +HYDROCODON-ACE1 EAC7 PO; +NAPROSYN500 MG PO; +PREDNISONE20 MG PO
[2019-12-29] MEDS ORDERED: VISTARIL25 MG PO (11:44)
[2019-12-29 12:18] VITALS: BP 119/76; Ht 185.4 cm; Wt 70.5 kg
[2019-12-29 12:23] LABS: BASOPHILS 0.8 % (0-2); EOSINOPHILS 4.4 % (0-7); HEMATOCRIT 39.5 % (42.0-54.0); HEMOGLOBIN 12.1 g/dL (13.5-17.5); IMMATURE GRANULOCYTES 0.4 % (0-5); LYMPHOCYTES 19.5 % (15-50); MCH 26.1 pg (26.0-34.0); MCHC 30.6 g/dL (31.0-37.0); MCV 85.1 fL (80.0-100.0); MEAN PLATELET VOLUME 10.3 fL (7.4-10.4); MONOCYTES 8.6 % (2-11); NEUTROPHILS 66.3 % (40-80); PLATELET COUNT 455 10x3/uL (130-400); RBC 4.64 10x6/uL (4.20-6.10); RDW 16.9 % (11.5-14.5); WBC 7.5 10x3/uL (4.8-10.8)
[2019-12-29 12:38] LABS: ALT (SGPT) 8 U/L (10-68); CALC OSMOLALITY 274 mosm/kg (275-300); CALCIUM 8.7 mg/dL (8.5-10.1); CARBON DIOXIDE 24.5 mmol/L (21.0-32.0); CHLORIDE - SERUM 103 mmol/L (98-107); CHOL - HDL RATIO 5.3 ratio (2.3-4.9); CHOLESTEROL, TOTAL 191 mg/dL (0-200); CREATININE - SERUM 0.7 mg/dL (0.6-1.3); GLUCOSE 93 mg/dL (74-106); HDL CHOLESTEROL 36 mg/dL (32-96); LDL CHOLESTEROL 124 mg/dL (0-100); LDL-HDL RATIO 3.4 ratio (1.5-3.5); SODIUM 138 mmol/L (136-145); TRIGLYCERIDE 158 mg/dL (30-200); UREA NITROGEN 11 mg/dL (7-18); eGFR NON AFRICAN AMERICAN > 90 mL/min (90-120)
--- NOTE | 2019-12-29 14:03 | NUR ---
PT ARRIVED BY STRETCHER. PLACED ON MONITORS. ASSESSMENT COMPLETED. VSS AT THIS TIME. CALL LIGHT WITHIN REACH.
--- NOTE | 2019-12-29 14:18 | NUR ---
PT RESTING COMFORTABLY. C/O INDIGESTION. GIVEN SIPS OF SPRITE TO HELP. DENIES NAUSEA/PAIN.
[2019-12-29] MEDS ORDERED: CELEXA10 MG PO (14:24)
[2019-12-29] MEDS ORDERED: MEDROL DOSE PACK4 MG PO (14:24)
[2019-12-29] MEDS ORDERED: PLAVIX75 MG PO (14:25)
[2019-12-29] MEDS ORDERED: LIPITOR10 MG PO (14:25)
--- NOTE | 2019-12-29 14:45 | NUR ---
RIGHT GROIN DRESSING C/D/I. NO S/S OF HEMATOMA NOTED. CALL LIGHT WITHIN REACH. VSS. DENIES NAUSEA/PAIN AT THIS TIME.
--- NOTE | 2019-12-29 15:16 | NUR ---
PRESCRIPTIONS TAKEN DOWN STAIRS TO PT'S SIGNIFICANT OTHER MARVIN. WE DESCUSSED HIS DISCHARGE INSTRUCTIONS AND I GAVE HER HIS PRESCRIPTIONS. SHE WILL GET THEM FILLED WHILE WAITING ON PATIENT TO DISCHARGE HOME.
--- NOTE | 2019-12-29 15:20 | NUR ---
RIGHT GROIN DRESSING C/D/I. NO S/S OF HEMATOMA NOTED. VSS. NO NEEDS AT THIS TIME. RESTING COMFORTABLY.
--- NOTE | 2019-12-29 15:51 | NUR ---
RIGHT GROIN DRESSING C/D/I. NO S/S OF HEMATOMA NOTED. RESTING COMFORTABLY. DENIES ANY NEEDS AT THIS TIME.
--- NOTE | 2019-12-29 16:23 | NUR ---
PT SNORING. EASILY AROUSED FROM SLEEP. RIGHT GROIN DRESSING C/D/I. NO S/S OF HEMATOMA NOTED. DENIES NAUSEA/PAIN AT THIS TIME. VSS. CALL LIGHT WITHIN REACH.
--- NOTE | 2019-12-29 16:43 | NUR ---
RIGHT GROIN DRESSING C/D/I. NO S/S OF HEMATOMA NOTED. HEAD OF BED INC TO 30 DEGREES. TOLERATED WELL. SET UP WITH SANDWICH TRAY AND DRINK. CALL LIGHT WITHIN REACH. NO OTHER NEEDS AT THIS TIME.
--- NOTE | 2019-12-29 17:20 | NUR ---
DISCUSSED DISCHARGE INSTRUCTIONS WITH PT. HE VOICED UNDERSTANDING. DISCUSSED HIS NEW MEDICATIONS AND WHAT THEY WERE FOR AND THE IMPORTANCE OF TAKING THEM AND NOT SKIPPING ANY DOSES. HE VOICED UNDERSTANDING. PIV D/C'D WITH CATH TIP INTACT. TOLERATED WELL. PT VOIDED 600cc OF CLEAR YELLOW URINE IN URINAL. PT DRESSED WITH ASSISTANCE.
--- NOTE | 2019-12-29 17:40 | NUR ---
PT TAKEN DOWN TO VEHICLE BY WHEELCHAIR. NO S/S OF DISTRESS NOTED. ALL BELONGINGS AND PAPERWORK IN HAND. SPOKE WITH PT'S SIGNIFICANT OTHER AGAIN ABOUT MEDICATION AND DISCHARGE INSTRUCTIONS. SHE HAS PICKED UP ALL OF HIS PRESCRIPTIONS.
--- NOTE | 2019-12-30 09:16 | OP ---
PATIENT NAME: Joe BIRCH MEDICAL RECORD: [id number] :54 LOCATION:D.CAT ADMISSION DATE: SURGEON: ANA FAJARDO MD DATE OF OPERATION: 12/29/2019 PROCEDURE: Left heart catheterization, selective coronary angiography plus PTCA stenting of the circumflex, right femoral artery approach. CATHETERS: A 5-[place] sheath, 5/4 left and right Corky, 5/4 pig. The procedure was well tolerated. We proceeded to the PTCA stenting, the procedure was finished. FINDINGS: Left ventriculography in 30-degree BUENO view; normal wall motion, normal systolic function. CORONARY ANATOMY: LEFT MAIN: Left main is free of disease. LAD: Area of previous stenting is widely patent. No evidence of restenosis. Mild luminal irregularities otherwise. CIRCUMFLEX: Circumflex has a tight 80% to 90% stenosis, has left dominant system, this support the split of the PD and first OM. RIGHT CORONARY ARTERY: Somewhat rudimentary with luminal irregularities. PLAN: Intervention of circumflex momentarily. DESCRIPTION OF PROCEDURE: A 5-[place] sheath was exchanged for a 6-[place] sheath. XB LAD guiding catheter provided excellent guide catheter support followed by 300-cm Whisper wire. Stent deployed was a 3.0 x 15 mm Integrity [id number] stent to 14 atmospheres for 45 seconds. Final angiography shows excellent resolution of 80% to 90% stenosis, no significant residual. MEHDI flow was 3 throughout the procedure. Heparin was used during the case. Sheath was closed with ExoSeal device. Plavix was loaded in the lab. The patient was started on Lipitor as well as Plavix and aspirin as well. TRANSINT:[id number] Voice Confirmation ID: [id number] DOCUMENT ID: [id number] ANA FAJARDO MD at 0916 CC: [id number] DICTATION DATE: 12/29/19 1359 SCHOOL COORDINATOR: 12/29/19 1532 [facility] CLI 12/29/[address] [address]
== END 2019-12-29 17:40 | disposition home or self-care (01) ==
LOC: D.CATH 10:58
PROVIDERS: ATTEND Internal Medicine Interventional Cardiology
DX: I25.119 Atherosclerotic heart disease of native coronary artery with unspecified angina pectoris (principal)

== ENCOUNTER 2020-01-02 17:54 | Inpatient (IN) | payer MEDICARE ==
[~2020-01-02] VITALS: Ht 185.4 cm; Wt 79.1 kg
--- NOTE | ~2020-01-02 | OP ---
PATIENT NAME: Joe BIRCH MEDICAL RECORD: [id number] :54 LOCATION:D.M2 D.2129 ADMISSION DATE:01/03/20 SURGEON: ANA FAJARDO MD DATE OF OPERATION: 01/03/2020 PROCEDURE: Left heart catheterization, selective coronary angiography, right femoral artery approach. CATHETERS: A 5-Citizen Of [place] sheath, 5/4 left and right Corky, 5/4 pig. The procedure was well tolerated. The patient was returned to [place]. Sheath removed. ExoSeal device placed. FINDINGS: Left ventriculography in 30-degree BUENO view, this shows continued normal wall motion, normal systolic function, EF remains at 50%. CORONARY ANATOMY: LEFT MAIN: Left main is free of disease. LAD: LAD is free of disease in the diagonal system. CIRCUMFLEX: Circumflex, an area of previous stenting shows a large thrombus burden consistent with P2Y12 level and either with Plavix nonresponder or Plavix noncompliance. RIGHT CORONARY ARTERY: Right coronary artery is again somewhat of a dominant system, diffusely diseased. DESCRIPTION OF PROCEDURE: A 5-Citizen Of [place] sheath was exchanged for a 6-Citizen [place] sheath. We used a 3-0 balloon up and down the stent as well as IV Integrilin to help the decreased thrombus burden. We had marked improvement in flow from 2 to 3. The patient was started on Integrilin drip, given possibility of Plavix nonresponder, he also was loaded with p.o. Effient was started as an agent as well as the Integrilin drip. Sheath closed with ExoSeal device. TRANSINT:[id number] Voice Confirmation ID: [id number] DOCUMENT ID: [id number] ANA FAJARDO MD CC: [id number] DICTATION DATE: 01/03/20 1342 SAMPLE MOUNTER: 01/03/20 1653 ADM IN [facility] [address] [place] [address]
--- NOTE | ~2020-01-02 | HEMODYNAMI ---
PATIENT:Joe BIRCH MEDICAL RECORD: [id number] : 54 LOCATION:[facility] D2129 ADMISSION DATE: 01/03/20 Generatedon:01/03/202013:26 Patient name: Joe BIRCH Patient #: [id number] SSN: [id number] 5 : 1950 Date of study: 01/03/2020 Page: Of Hemodynamic Procedure Report Patient Data Patient Demographics Procedure consent was obtained First Name: Joe Gender: Male Last Name: QUETA : 1950 Middle Initial: R Age: 69 year(s) Patient #: [id number] Race: SSN: [id number] Additional ID: [id number] Contact details Address: [address] [place] [address] State: [place] City: [place] Zip code: [address] Past Medical History Allergies: No known allergies Admission Admission Data Admission Date: 01/03/2020 Admission Time: 11:27 Arrival Date: 01/03/2020 Arrival Time: 0:00 Admit Source: Other Insurance Payor: Medicare Room #: D.2129 [facility] #: [id number] Height (in.): 73 BSA: 2.03 (m2) Height (cm.): 185.42 BMI: 23 (kg/m2) Weight (lbs.): 174.36 Weight (kg.): 79.09 Lab Results Lab Result Date: 01/03/2020 Lab Result Time: 0:00 Biochemistry Name Units Result Min Max BUN mg/dl 12 --(-*--)-- 7 18 CK-MB ng/ml 586.5 --(----)-* 0 3.6 Creatinine mg/dl 0.8 --(-*--)-- 0.6 1.3 eGFR ml/min 90 --(*---)-- 90 120 NONAFRICAN Troponin l ng/ml 120.889 --(----)-* 0 0.06 CBC Name Units Result Min Max Hematocrit % 38 *-(----)-- 42 54 Hemoglobin g/dl 11.7 *-(----)-- 13.5 17.5 Procedure Procedure Types Cath Procedure Diagnostic Procedure [facility] w/Coronaries Sedation Charges Moderate Sedation up to 30 minutes PCI Procedure PTCA PTCA Initial Hemochron ACT Test Procedure Description Procedure Date Procedure Date: 01/03/2020 Procedure Start Time: 12:59 Procedure End Time: 13:25 Procedure Staff Name Function Thomas Guajardo MD Performing Physician Angelica Munoz RT Monitor Marina Rodriguez RT Scrub Danisha Thomas RN Nurse Patricia Soto RT Brusher Tender Procedure Data Cath Procedure Fluoroscopy Diagnostic fluoroscopy Total fluoroscopy Time: 4.7 time: 4.7 min min Diagnostic fluoroscopy Total fluoroscopy dose: 532 dose: 532 mGy mGy Contrast Material Contrast Material Type Amount (ml) Isovue 370 75 Entry Location Entry Primary Successful Side Size Upsize Upsize Entry Closure Succes sful Closure Location (Fr) 1 (Fr) 2 (Fr) Remarks Device Remarks Femoral Right 6 Fr Exoseal artery Short Estimated blood loss: 10 ml Diagnostic catheters Device Type Used For End Catheter Placement MULTIPACK JL 4.0 5Fr Procedure catheter MULTIPACK 3DRC 5Fr Procedure catheter MULTIPACK Pigtail 5 Fr Procedure catheter Procedure Complications No complications Procedure Medications Medication Administration Route Dosage 0.9% NaCl I.V. 100 ml/hr Oxygen etCO2 Nasal cannula 2 l/min Lidocaine 2% added to field 20 Heparin Flush Bag added to field 2 bags (1000units/500ml NS) Versed I.V. 2 mg Fentanyl I.V. 50 mcg Fentanyl I.V. 50 mcg Heparin Bolus I.V. 5000 units Integrilin (Bolus I.V. 7.3 ml 2mg/ml) Integrilin (Bolus wasted 2.7 ml 2mg/ml) Effient P.O. 60 mg Integrilin Drip I.V. drip 13 ml/hr (75mg/100ml) Hemodynamics Rest BSA: 2.03 (m2) HGB: 11.7 (g/dl) O2 Consumption: Estimated: 240.59 (ml/min) O2 Co nsumption indexed: Estimated:118.52 (ml/min/m) Heart Rate: 76 (bpm) Pressure Samples Time Site Value (mmHg) Purpose Heart Use Rate(bpm) 13:03 LV 75/1,1 Snapshot 84 13:03 AO 81/50(66) Pullback 80 Gradients Valve Time Site Site 2 Mean SEP/DFP Peak To Heart Use 1 (mmHg) (sec/min) Peak Rate (mmHg) (bpm) Aortic 13:03 LV AO 80 81/50(66) Snapshots Pre Cath Intra NCS Post Cath Vital Signs Time Heart Resp SPO2 etCO2 NIBP Rhythm Pain Sedation Rate (ipm) (%) (mmHg) (mmHg) Status Level (bpm) 12:40:59 81 21 100 20.1 107/64(75) NSR 0 (11) 10(A) , No pain 12:45:06 93 11 100 21.6 106/59(94) NSR 0 (11) 10(A) , No pain 12:49:12 82 11 99 29.8 94/63(69) NSR 0 (11) 10(A) , No pain 12:53:12 71 13 98 14.9 92/66(73) NSR 0 (11) 10(A) , No pain 12:57:11 70 12 97 1.4 94/63(75) NSR 0 (11) 9(A) , No pain 13:01:11 80 18 97 25.3 100/66(76) NSR 0 (11) 9(A) , No pain 13:05:15 79 14 97 10.4 91/58(72) NSR 0 (11) 9(A) , No pain 13:09:14 74 13 97 26.9 96/64(72) NSR 0 (11) 9(A) , No pain 13:13:16 74 13 97 16.4 100/63(79) NSR 0 (11) 10(A) , No pain 13:17:18 78 17 97 29.1 105/67(75) NSR 0 (11) 9(A) , No pain 13:21:22 79 15 98 22.4 105/67(77) NSR 0 (11) 9(A) , No pain 13:25:21 0 No Cuff NSR 0 (11) 9(A) , No pain Medications Time Medication Route Dose Verified Delivered Reason Notes Effectiveness by by 12:42:11 0.9% NaCl I.V. 100 Thomas Raman used for ml/hr [facility] Thomas procedure RN 12:42:19 Oxygen etCO2 2 Thomas Danisha used for Nasal l/min [facility] procedure cannula RN 12:42:23 Lidocaine 2% added 20ml Thomas Guzman for local to vial [facility] anesthetic field MD ANDRADE 12:42:27 Heparin Flush added 2 Thomas Guzman used for Bag to bags [facility] procedure (1000units/500ml field MD ANDRADE NS) 12:43:11 Versed I.V. 2 mg Thomas Maddoxa for sedation [facility] Thomas MD, RN 12:43:20 Fentanyl I.V. 50 Thomas Danisha for sedation mcg [facility] Jason Thomas MD RN 12:48:57 Fentanyl I.V. 50 Thomas Danisha for sedation mcg [facility] Thomas MD RN 13:03:07 Heparin Bolus I.V. 5000 Thomas Danisha for verif ied units [facility] anticoagulation with Dr. ANDRADE RN [place] 13:03:21 Integrilin I.V. 7.3 Thomas Danisha for (Bolus 2mg/ml) ml [facility] antiplatelet RN therapy 13:03:35 Integrilin wasted 2.7 Thomas Danisha for (Bolus 2mg/ml) ml [facility] antiplatelet RN therapy 13:03:41 Effient P.O. 60 mg Thomas Danisha for [facility] antiplatelet RN therapy 13:15:46 Integrilin Drip I.V. 13 Thomas Danisha for (75mg/100ml) drip ml/hr [facility] Thomas antiplatelet RN therapy Procedure Log Time Note 12:05:46 Informed consent obtained and on chart 12:06:33 Procedure Status Urgent Heart Cath (IP). 12:06:35 Time tracking: Regular hours (M-F 7:00 - 5:00) 12:06:38 Plan of Care:Hemodynamics will remain stable., Cardiac rhythm will remain stable., Comfort level will be maintained., Respiratory function will remain adequate., Patient/ family verbilizes understanding of procedure., Procedure tolerated without complication., Recovers from procedure without complications.. 12:06:45 H&P Date Dictated: 01/03/2020 ER History on chart.. 12:06:51 Patient allergic to No known allergies 12:15:01 Arrival Date: 01/03/2020 12:00:00 AM 12:15:02 Admit Source: Other 12:15:04 Patient Height : 73 inches 12:15:09 Patient Weight : 174.36 lbs 12:15:20 Insurance Payor : Medicare 12:17:05 Lab Result : BUN 12 mg/dl 12:17:05 Lab Result : Creatinine 0.8 mg/dl 12:17:05 Lab Result : eGFR NONAFRICAN 90 ml/min 12:17:05 Lab Result : Hemoglobin 11.7 g/dl 12:17:05 Lab Result : Hematocrit 38 % 12:17:05 Lab Result : CK-MB 586.5 ng/ml 12:17:05 Lab Result : Troponin l 120.889 ng/ml 12:18:00 Danisha Thomas RN sent for patient. Start room use. 12:20:46 Pre-procedure instructions explained to patient. 12:20:46 Pre-op teaching completed and patient verbalized understanding. 12:20:48 Family unavailable. 12:20:52 Patient NPO since Breakfast. 12:36:42 Patient received from Med II to CCL 1 Alert and oriented. Tansferred to table in Supine position. 12:36:43 Warm blankets applied, and phoenix hugger turned on for patient comfort. 12:36:44 Correct patient and procedure confirmed by team. 12:36:44 ECG and BP/O2 sat monitors applied to patient. 12:36:47 Is the patient allergic to Iodine/contrast media? No. 12:37:54 Was the patient premedicated? N/A 12:37:56 Is patient on blood thinner?Yes 12:38:06 ACC The patient was administered the following blood thiners within the last 24 hours: ACCPlavix, ACCEffient 12:38:09 Patient diabetic? No. 12:38:11 If diabetic: On Metformin? N/A 12:38:13 ----Pre-sedation anethsthesia assessment.---- 12:38:17 Previous problem with sedation/anesthesia? No ? 12:38:18 Snore? Yes 12:38:19 Sleep apnea? No 12:38:20 Deviated septum? No 12:38:21 Opens mouth fully? Yes 12:38:23 Sticks out tongue? Yes 12:38:26 Airway obstruction? Yes COPD 12:38:39 Dentures? No ? 12:38:47 Patient pain scale 0/10 ?. 12:38:51 IV patent on arrival in right forearm with 0.9% NaCl at [facility]. 12:38:55 Lab results completed and on chart. 12:38:58 Stress Test: no; N/A ? 12:39:02 Right groin area was prepped with chlora-prep and draped in sterile fashion 12:39:03 Alarms reviewed by R. N. 12:39:04 Sharps counted by scrub and verified by R.N. 12:39:26 Use device set Femoral Dx 12:39:28 ACIST Syringe (41622) opened to sterile field. 12:39:28 Bag Decanter (2002S) opened to sterile field. 12:39:29 Medline Cath Pack ([id number]) opened to sterile field. 12:39:30 ACIST Hand Control (24860) opened to sterile field. 12:39:31 ACIST Manifold (69629) opened to sterile field. 12:39:32 DIAGNOSTIC Multipack 5Fr catheter set ([id number]) opened to sterile field. 12:39:34 EMERALD Guide Wire (502-191) opened to sterile field. 12:39:44 SHEATH 6FR [place] (SCG283) opened to sterile field. 12:39:56 Vital chart was started 12:39:58 Full Disclosure recording started 12:40:00 Baseline sample Acquired. 12:40:04 Rhythm: sinus rhythm 12:42:11 0.9% NaCl 100 ml/hr I.V. was administered by Danisha Thomas RN; used for procedure; Verbal order read back and verified. 12:42:19 Oxygen 2 l/min etCO2 Nasal cannula was administered by Danisha Thomas RN; used for procedure; Verbal order read back and verified. 12:42:23 Lidocaine 2% 20ml vial added to field was administered by Thomas Guajardo MD; for local anesthetic; Verbal order read back and verified. 12:42:27 Heparin Flush Bag (1000units/500ml NS) 2 bags added to field was administered by Thomas Guajardo MD; used for procedure; Verbal order read back and verified. 12:42:54 --------ALL STOP TIME OUT------ 12:42:55 Final Timeout: patient, procedure, and site verified with staff and physician. All members of the team are in agreement. 12:42:56 Right groin site verified by team. 12:43:00 Fire Safety Assessment: A--An alcohol-based skin anteseptic being used preoperatively., C--Open oxygen or nitrous oxide is being used., D--An ESU, laser, or fiber-optic light is being used. 12:43:05 Physical assessment completed. ASA score P 2 - A patient with mild systemic disease as per Thomas Guajardo MD. 12:43:08 1) 90+ Normal kidney functon but urine findings or structural abnormalities or genetic trait point to kidney disease. 12:43:11 Versed 2 mg I.V. was administered by Danisha Thomas RN; for sedation; Verbal order read back and verified. 12:43:14 Maximum allowable contrast dose (3.7 X eGFR X 0.75)250 ml. 12:43:18 Sedation plan: IV Moderate Sedation Medication:Versed, Fentanyl 12:43:20 Fentanyl 50 mcg I.V. was administered by Danisha Thomas RN; for sedation; Verbal order read back and verified. 12:43:47 Use device set IRVINE PCI 12:48:57 Fentanyl 50 mcg I.V. was administered by Danisha Thomas RN; for sedation; Verbal order read back and verified. 12:50:34 Zero performed for pressure channel P1 12:57:16 Procedure started. 12:58:53 CALLED PT AND NOTIFIED OF START OF PROCEDURE. 12:59:02 Local anesthetic to right femoral artery with Lidocaine 2% by Thomas Guajardo MD.INITIAL ACCESS ONLY 12:59:10 A 6 Fr Short sheath was inserted into the Right Femoral artery 12:59:20 A MULTIPACK JL 4.0 5Fr catheter was advanced over the wire and used for Procedure. 12:59:46 LCA angiography performed. 12:59:50 Injector settings: Ml/sec: 3, Volume: 6, 13:00:53 Catheter removed. 13:01:05 A MULTIPACK 3DRC 5Fr catheter was advanced over the wire and used for Procedure. 13:01:10 RCA angiography performed. 13:01:34 Injector settings: Ml/sec: 3, Volume: 6, 13:01:52 Catheter removed. 13:01:57 A MULTIPACK Pigtail 5 Fr catheter was advanced over the wire and used for Procedure. 13:03:07 Heparin Bolus 5000 units I.V. was administered by Danisha Thomas RN; for anticoagulation; verified with Dr. Brown Verbal order read back and verified. 13:03:19 LV hemodynamics recorded. 13:03:21 Integrilin (Bolus 2mg/ml) 7.3 ml I.V. was administered by Danisha Thomas RN; for antiplatelet therapy; Verbal order read back and verified. 13:03:28 LV gram done using LIVIER 13:03:35 Integrilin (Bolus 2mg/ml) 2.7 ml wasted was administered by Danisha Thomas RN; for antiplatelet therapy; Verbal order read back and verified. 13:03:35 EF : 55 % 13:03:41 Effient 60 mg P.O. was administered by Danisha Thomas RN; for antiplatelet therapy; Verbal order read back and verified. 13:03:44 Catheter removed. 13:03:50 INFLATOR Merit BasixCompak (ZA4709) opened to sterile field. 13:03:53 WHISPER 300cm guide wire ([id number]) opened to sterile field. 13:04:14 GUIDE 6FR XBLAD 3.5 catheter ([id number]) opened to sterile field. 13:04:35 Proceeding to intervention. 13:04:44 6 Fr XBLAD 3.5 guide catheter was inserted over the wire 13:06:30 Pre PCI Site: [place] [facility] has 80% stenosis. 13:06:34 WHISPER 300 wire advanced. 13:07:17 Wire advanced across lesion. 13:09:39 Inflate balloon Inflation number: 1 A EMERGE OTW 3.0 x 15 balloon ([id number]) was prepped and advanced across the Mid CX 80, then inflated to 6 TIFFANIE for 0:15 (min:sec) . 13:10:32 Inflation number: 2 The EMERGE OTW 3.0 x 15 balloon ([id number]) was reinflated across the Mid CX , to 8 TIFFANIE for 0:18 (min:sec) . 13:11:30 Inflation number: 3 The EMERGE OTW 3.0 x 15 balloon ([id number]) was reinflated across the Mid CX , to 12 TIFFANIE for 0:19 (min:sec) . 13:13:44 Balloon removed over the wire. 13:13:44 Wire removed. 13:13:45 Guide catheter removed. 13:14:58 EXOSEAL 6Fr (EX600) opened to sterile field. 13:15:01 Tegaderm 4 x 4 (1626W) opened to sterile field. 13:15:46 Integrilin Drip (75mg/100ml) 13 ml/hr I.V. drip was administered by Danisha Thomas RN; for antiplatelet therapy; Verbal order read back and verified. 13:16:36 Sheath removed intact; hemostasis achieved with Exoseal to the Right Femoral artery. 13:16:38 Procedure ended.(Physican Out) 13:20:24 Fluoroscopy time 04.70 minutes. 13:20:28 Flurop Dose total: 532 13:20:28 Fluoroscopy dose: 532 mGy 13:20:37 Dose Area Product 15754 mGy/cm. 13:20:41 Contrast amount:Isovue 370 75ml. 13:20:44 Maximum allowable dose exceeded? No. 13:20:45 Sharps counted by scrub and verified by R.N. 13:20:49 Post-op/insertion site Right Femoral artery dressed using a 4 x 4 and Tegaderm. 13:20:56 Post right femoral artery:stable, soft, clean and dry 13:21:02 Post Procedure Pulses reassessed and unchanged 13:21:07 Post-procedure physical assessment completed. ASA score P 2 - A patient with mild systemic disease as per Thomas Guajardo MD. 13:21:10 Post procedure rhythm: unchanged. 13:21:13 Estimated blood loss: 10 ml 13:21:15 Post procedure instruction explained to patient.Patient verbalizes understanding. 13:21:15 Patient needs reinforcement of post procedure teaching. 13:22:14 Procedure type changed to Cath procedure, Diagnostic procedure, LHC, [facility] w/Coronaries, Sedation Charges, Moderate Sedation up to 30 minutes, PCI procedure, PTCA, PTCA Initial, Hemochron ACT Test 13:24:41 ACT drawn and resulted at 255 seconds. (normal therapeutic range 180-240 seconds). 13:24:46 Procedure and supply charges have been captured, reviewed, submitted and are correct. 13:24:50 Procedure Complication : No complications 13:25:10 Vital chart was stopped 13:25:12 [facility] Findings: MVD- PCI performed (see procedure note) 13:25:14 Operative report dictated upon procedure completion. 13:25:16 See physician's report for complete and final results. 13:25:18 Report given to [facility]. 13:25:22 Patient transfered to [facility] with Bed. 13:25:24 Procedure ended. 13:25:24 Full Disclosure recording stopped 13:25:35 ACC-PCI Only Patient was given prescriptions, or instructed by Thomas Guajardo MD to start/continue the following medications upon discharge: Plavix 13:25:37 End room use (Document Last) 13:26:13 End room use (Document Last) Intervention Summary Intervention Notes Time ActionType Lesion and Equipment Action# Pressure Duration Attributes Used 13:09:39 Inflate Mid CX EMERGE OTW 1 6 00:15 balloon 3.0 x 15 balloon ([id number]) 13:10:32 Reinflate Mid CX EMERGE OTW 2 8 00:18 balloon 3.0 x 15 balloon ([id number]) 13:11:30 Reinflate Mid CX EMERGE OTW 3 12 00:19 balloon 3.0 x 15 balloon ([id number]) Device Usage Item Name Manufacture Quantity Catalog Number Hospital Part Current Min imal Lot# / Charge Number Stock Stock Serial# Code ACIST Acist 1 31276 095872 987638 781432 20 Syringe Medical (44654) Systems Inc Bag Decanter Microtek 1 784593 90988 326830 5 (2001S) Medical Inc. Medline Cath Medline 1 [id number] 014092 18842 243503 5 Pack ([id number]) ACIST Hand Acist 1 97855 312776 384799 067804 5 Control Medical (80167) Systems Inc ACIST Acist 1 47846 106278 729017 690188 5 Manifold Medical (13331) Systems Inc DIAGNOSTIC Cardinal 1 WP3232 502772 46538 880127 30 Multipack Health 5Fr catheter set (GN3734) EMERALD Cardinal 1 502-455 677856 427167 187713 5 Guide Wire Health (502-455) SHEATH 6FR Terumo 1 OMW735 322792 397961 139654 40 [place] (WTL489) MULTIPACK JL Cardinal 1 789526 5 4.0 5Fr Health catheter MULTIPACK Cardinal 1 384707 5 3DRC 5Fr Health catheter MULTIPACK Cardinal 1 198826 5 Pigtail 5 Fr Health catheter INFLATOR Merit 1 QN7378 419973 259871 216057 15 [facility] Medical BasixCompak (VN7020) WHISPER Theodore 1 [id number] 565858 918878 017105 5 300cm guide Vascular wire (2064826LT) GUIDE 6FR Cardinal 1 [id number] 967116 271428 360181 10 XBLAD 3.5 Health catheter (53703463) EMERGE OTW [place] 1 [id number] 772760 412351 701021 5 [id number] 3.0 x 15 Scientific balloon ([id number]) EXOSEAL 6Fr Cardinal 1 EX600 127902 295477 256904 10 (EX600) Health Tegaderm 4 x 3M 1 1626W 475447 581220 452414 5 4 (1626W) Signature Audit [place] Stage Time Signature Unsigned Intra-Procedure 01/03/2020 Patricia Soto 1:25:43 PM RT(R) Intra-Procedure 01/03/2020 Danisha Thomas 1:26:13 PM RN Intra-Procedure 01/03/2020 Thomas Cedillo 1:26:30 PM Jason ANDRADE [facility] [address] [place] [address]
[~2020-01-02 17:54] MED LIST changes: +CELEXA10 MG PO; +LIPITOR10 MG PO; +VISTARIL25 MG PO
[2020-01-02 18:20] VITALS: BP 149/59
[2020-01-02 19:00] VITALS: BP 149/84
[2020-01-02 20:00] VITALS: BP 145/84
[2020-01-02 20:03] LABS: CKMB 116.6 U/L (0.0-3.6); CREATINE KINASE 684 UL (21-232)
[2020-01-02 20:10] LABS: TROPONIN-I 9.969 ng/mL (0.000-0.060)
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
--- NOTE | 2020-01-02 22:05 | NUR ---
NOTIFIED DR. ANTONIO REGARDING PATIENT ELEVATED TROPONIN. ORDERS GIVEN TO ORDER CARDIAC ENZYMES IN AM.
[2020-01-02 23:30] VITALS: Ht 185.4 cm; Wt 79.1 kg
[2020-01-03 01:04] VITALS: BP 111/61
[2020-01-03 02:01] LABS: BASOPHILS 0.3 % (0-2); EOSINOPHILS 1.6 % (0-7); HEMOGLOBIN 11.7 g/dL (13.5-17.5); IMMATURE GRANULOCYTES 0.2 % (0-5); LYMPHOCYTES 12.7 % (15-50); MCH 25.9 pg (26.0-34.0); MCHC 30.8 g/dL (31.0-37.0); MCV 84.3 fL (80.0-100.0); MEAN PLATELET VOLUME 10.6 fL (7.4-10.4); MONOCYTES 9.3 % (2-11); NEUTROPHILS 75.9 % (40-80); PLATELET COUNT 506 10x3/uL (130-400); RBC 4.51 10x6/uL (4.20-6.10); RDW 16.8 % (11.5-14.5); WBC 9.9 10x3/uL (4.8-10.8)
[2020-01-03 02:36] LABS: ALBUMIN 2.9 g/dL (3.4-5.0); ALKALINE PHOSPHATASE 102 U/L (30-120); ALT (SGPT) 41 U/L (10-68); BILIRUBIN - TOTAL 0.16 mg/dL (0.2-1.3); CALC OSMOLALITY 272 mosm/kg (275-300); CALCIUM 8.8 mg/dL (8.5-10.1); CHLORIDE - SERUM 101 mmol/L (98-107); CREATININE - SERUM 0.8 mg/dL (0.6-1.3); GLUCOSE 121 mg/dL (74-106); MAGNESIUM - SERUM 2.2 mg/dL (1.8-2.4); PHOSPHOROUS 4.5 mg/dL (2.5-4.9); POTASSIUM - SERUM 4.2 mmol/L (3.5-5.1); PROTEIN - SERUM 7.5 g/dL (6.4-8.2); SODIUM 136 mmol/L (136-145); UREA NITROGEN 12 mg/dL (7-18); eGFR NON AFRICAN AMERICAN > 90 mL/min (90-120)
[2020-01-03 02:38] LABS: CKMB 586.5 U/L (0.0-3.6); CREATINE KINASE 2676 UL (21-232); TROPONIN-I 120.889 ng/mL (0.000-0.060)
--- NOTE | 2020-01-03 02:40 | NUR ---
PAGED DR. ANTONIO AT THIS TIME DUE TO PT TROP INCREASE.
--- NOTE | 2020-01-03 02:45 | NUR ---
DR. ANTONIO RETURNED PAGE, READ TROP RESULTS. DR. ANTONIO STATED HE WOULD SEE HIM AT 7AM.
[2020-01-03 04:59] VITALS: BP 92/61
[2020-01-03 08:14] VITALS: BP 89/50
[2020-01-03 08:50] LABS: PLT FUNCT.(P2Y12) PLAVIX 255 PRU (194-418)
[2020-01-03 09:40] LABS: CHOL - HDL RATIO 5.1 ratio (2.3-4.9); CHOLESTEROL, TOTAL 168 mg/dL (0-200); HDL CHOLESTEROL 33 mg/dL (32-96); LDL CHOLESTEROL 104 mg/dL (0-100); LDL-HDL RATIO 3.2 ratio (1.5-3.5); TRIGLYCERIDE 157 mg/dL (30-200)
[2020-01-03 09:41] LABS: CKMB 411.4 U/L (0.0-3.6); CREATINE KINASE 2046 UL (21-232)
[2020-01-03 11:17] VITALS: BP 89/59
--- NOTE | 2020-01-03 14:05 | NUR ---
I have reviewed this patient and I concur with the Shift Assessment completed by the Licensed Practical Nurse today this shift.
[2020-01-03 14:54] LABS: CKMB 228.6 U/L (0.0-3.6)
[2020-01-03 14:59] LABS: CREATINE KINASE 1113 UL (21-232)
[2020-01-03 15:00] LABS: TROPONIN-I 72.705 ng/mL (0.000-0.060)
--- NOTE | 2020-01-03 15:21 | MORECARE ---
CASE MANAGEMENT DISCHARGE SUMMARY PATIENT: Joe BIRCH UNIT: [id number] ADM DATE: 01/03/20 AGE: 69 : 52 SEX: M ROOM/BED: D.2129 AUTHOR: JAKOB RANDLE PHYSICIAN: REFERRING PHYSICIAN: CAROLINE CHATTERJEE MD DATE OF SERVICE: 01/03/20 Discharge Plan Patient Name: Joe BIRCH Facility: [facility]:[place] : 1950 Planned Disposition: Anticipated Discharge Date: Discharge Date: Expected LOS: Initial Reviewer: [email or web address] Initial Review Date: 01/02/2020 Generated: 01/03/20 4:21 pm DCPIA - Discharge Planning Initial Assessment Updated by [email or web address]: Charline Payne on 01/03/20 3:19 pm * Is the patient Alert and Oriented? Yes * How many steps to enter\exit or inside your home? 0/0 * Preadmission Environment Home with Family * ADLs Independent * Equipment Crutch * List name and contact numbers for known caregivers / representatives who currently or will assist patient after discharge: Marina GALARZA [phone] * Verbal permission to speak to the caregivers and representatives has been obtained from the patient. Yes * Community resources currently utilized None * Additional services required to return to the preadmission environment? No * Can the patient safely return to the preadmission environment? Yes * Has this patient been hospitalized within the prior 30 days at any hospital? No Coverage Notice Reviewer: [email or web address] - Charline Payne Notice Issued Date-Time: 01/03/2020 8:30 Notice Type: Medicare Outpatient Observation Notice Notice Delivered To: Patient Relationship to Patient: Transfer Agent Name: Delivery Method: PHONE - Phone Chiquis Days: Prior Verbal Notification: Yes Recipient Understood Notice: Yes Recipient Signature: Med Rec Note Co-signed by Attending: Coverage Notice Comment: VERDUZCO SERVED, EXPLAINED, AND SIGNED BY PATIENT. THE ORIGINAL WAS PROVIDED TO THE PATIENT AND COPY PLACED ON CHART. Patient Name: Joe BIRCH Page [phone] at 1521 All edits/amendments must be made on the electronic document DICTATION DATE: 01/03/20 1521 BEHAVIORAL ASSISTANT: MICKI 01/03/20 1521 RPT#: [id number] DC DATE: STATUS: ADM IN [facility] [address] [place] [address] END OF REPORT
--- NOTE | 2020-01-03 15:31 | MORECARE ---
CASE MANAGEMENT DISCHARGE SUMMARY PATIENT: Joe BIRCH UNIT: [id number] ADM DATE: 01/03/20 AGE: 69 : 54 SEX: M ROOM/BED: D.1899 AUTHOR: JAKOB RANDLE PHYSICIAN: REFERRING PHYSICIAN: CAROLINE CHATTERJEE MD DATE OF SERVICE: 01/03/20 Discharge Plan Patient Name: Joe BIRCH Facility: [facility]:[place] : 1950 Planned Disposition: Anticipated Discharge Date: Discharge Date: Expected LOS: Initial Reviewer: [email or web address] Initial Review Date: 01/02/2020 Generated: 01/03/20 4:30 pm Comments DCP- Discharge Planning Updated by [email or web address]: Charline Payne on 01/03/20 2:[address] Patient Name: Jeo BIRCH Admission Status: ER Accout number: [id number] Admission Date: 01-03-2020 : 1950 Admission Diagnosis: Attending: CAROLINE CHATTERJEE Current LOS: 1 Anticipated DC Date: Planned Disposition: Primary Insurance: MEDICARE A & B Discharge Planning Comments: CM met with patient to complete initial dc planning assessment. CM educated patient on the CM role and verbal consent given by patient to complete assessment. CM verified patient's address, phone number, and emergency contact phone numbers. Patient lives at home with his girlfriend Marina [phone] . At discharge patient plans to return home and feels this is a safe discharge. CM discussed availability of home health, rehab services, and medical equipment. Pt stated he is having difficulty walking at home because of his knees. refused - MARQUITA signed. Patient denied known discharge needs at this time. Transportation provider at discharge will be Marina . CM will continue to follow and will assist as needed with dc plans/needs. Upper Cutter Machine: Charline Payne MSN, RN, CM DCPIA - Discharge Planning Initial Assessment Updated by [id number]: Charline Payne on 01/03/20 3:19 pm * Is the patient Alert and Oriented? Yes * How many steps to enter\exit or inside your home? 0/0 * Preadmission Environment Home with Family * ADLs Independent * Equipment Crutch * List name and contact numbers for known caregivers / representatives who currently or will assist patient after discharge: Marina GALARZA [phone] * Verbal permission to speak to the caregivers and representatives has been obtained from the patient. Yes * Community resources currently utilized None * Additional services required to return to the preadmission environment? No * Can the patient safely return to the preadmission environment? Yes * Has this patient been hospitalized within the prior 30 days at any hospital? No Coverage Notice Reviewer: [id number] Alyssa Payne Notice Issued Date-Time: 01/03/2020 8:30 Notice Type: Medicare Outpatient Observation Notice Notice Delivered To: Patient Relationship to Patient: Oil Burner Mechanic Name: Delivery Method: PHONE - Phone Chiquis Days: Prior Verbal Notification: Yes Recipient Understood Notice: Yes Recipient Signature: Med Rec Note Co-signed by Attending: Coverage Notice Comment: VERDUZCO SERVED, EXPLAINED, AND SIGNED BY PATIENT. THE ORIGINAL WAS PROVIDED TO THE PATIENT AND COPY PLACED ON CHART. Reviewer: [id number] - Charline Payne Notice Issued Date-Time: 01/03/2020 14:20 Notice Type: Patient Choice Letter Notice Delivered To: Patient Relationship to Patient: Oil Burner Mechanic Name: Delivery Method: PHONE - Phone Chiquis Days: Prior Verbal Notification: Yes Recipient Understood Notice: Yes Recipient Signature: Med Rec Note Co-signed by Attending: Coverage Notice Comment: MARQUITA REFUSAL SIGNED FOR HH Last DP export: 01/03/20 2:21 pm Patient Name: Joe BIRCH Page [id number] at 1531 All edits/amendments must be made on the electronic document DICTATION DATE: 01/03/201529 HEBREW TEACHER: MICKI 01/03/201529 RPT#: [id number] DC DATE: STATUS: ADM IN [facility] [address] [place] [address] END OF REPORT
--- NOTE | 2020-01-03 19:30 | NUR ---
PT IN BED,AAO X 3, RESP EVEN AND UNLABORED, NO DISTRESS NOTED, CL IN REACH, SR UP X 2.
[2020-01-03 20:02] VITALS: BP 89/60
[2020-01-04 00:01] VITALS: BP 105/63
[2020-01-04 04:42] VITALS: BP 94/57
[2020-01-04 05:23] LABS: BASOPHILS 0.6 % (0-2); EOSINOPHILS 2.2 % (0-7); HEMATOCRIT 34.6 % (42.0-54.0); HEMOGLOBIN 10.8 g/dL (13.5-17.5); IMMATURE GRANULOCYTES 0.1 % (0-5); LYMPHOCYTES 15.5 % (15-50); MCH 25.9 pg (26.0-34.0); MCHC 31.2 g/dL (31.0-37.0); MEAN PLATELET VOLUME 10.5 fL (7.4-10.4); MONOCYTES 11.8 % (2-11); NEUTROPHILS 69.8 % (40-80); PLATELET COUNT 419 10x3/uL (130-400); RBC 4.17 10x6/uL (4.20-6.10); RDW 16.8 % (11.5-14.5)
[2020-01-04 05:33] LABS: WBC 7.3 10x3/uL (4.8-10.8)
[2020-01-04 05:41] LABS: CALC OSMOLALITY 265 mosm/kg (275-300); CALCIUM 8.1 mg/dL (8.5-10.1); CARBON DIOXIDE 24.4 mmol/L (21.0-32.0); CHLORIDE - SERUM 101 mmol/L (98-107); CREATININE - SERUM 0.7 mg/dL (0.6-1.3); GLUCOSE 110 mg/dL (74-106); POTASSIUM - SERUM 3.8 mmol/L (3.5-5.1); SODIUM 133 mmol/L (136-145); UREA NITROGEN 9 mg/dL (7-18); eGFR NON AFRICAN AMERICAN > 90 mL/min (90-120)
[2020-01-04 05:56] LABS: PHOSPHOROUS 2.8 mg/dL (2.5-4.9)
--- NOTE | 2020-01-04 07:10 | NUR ---
REPORT RECEIVED FROM SOFT SUGAR SUPERVISOR AND PATIENT CARE ASSUMED. PATIENT LAYING IN BED AWAKE, ALERT AND ORIENTED X 4. PATIENT DENIES ANY NEEDS OR PAIN. WILL CONTINUE WITH PLAN OF CARE. SR UP X 2 BED IN LOW POSITION AND CALL LIGHT IN REACH.
--- NOTE | 2020-01-04 09:01 | MORECARE ---
CASE MANAGEMENT DISCHARGE SUMMARY PATIENT: Joe BIRCH UNIT: [id number] ADM DATE: 01/03/20 AGE: 69 : 54 SEX: M ROOM/BED: D.4919 AUTHOR: JAKOB RANDLE PHYSICIAN: REFERRING PHYSICIAN: CAROLINE CHATTERJEE MD DATE OF SERVICE: 01/04/20 Discharge Plan Patient Name: Joe BIRCH Facility: [facility]:[place] : 1950 Planned Disposition: Anticipated Discharge Date: Discharge Date: Expected LOS: Initial Reviewer: [id number] Initial Review Date: 01/02/2020 Generated: 01/04/20 10:01 am Comments DCP- Discharge Planning Updated by [email or web address]: Charline Payne on 01/03/20 2:[address] Patient Name: Joe BIRCH Admission Status: ER Accout number: [id number] Admission Date: 01-03-2020 : 1950 Admission Diagnosis: Attending: CAROLINE CHATTERJEE Current LOS: 1 Anticipated DC Date: Planned Disposition: Primary Insurance: MEDICARE A & B Discharge Planning Comments: CM met with patient to complete initial dc planning assessment. CM educated patient on the CM role and verbal consent given by patient to complete assessment. CM verified patient's address, phone number, and emergency contact phone numbers. Patient lives at home with his girlfriend Marina [phone] . At discharge patient plans to return home and feels this is a safe discharge. CM discussed availability of home health, rehab services, and medical equipment. Pt stated he is having difficulty walking at home because of his knees. refused - MARQUITA signed. Patient denied known discharge needs at this time. Transportation provider at discharge will be Marina . CM will continue to follow and will assist as needed with dc plans/needs. Head Greenskeeper: Charline Payne MSN, RN, CM DCPIA - Discharge Planning Initial Assessment Updated by [email or web address]: Charline Payne on 01/03/20 3:19 pm * Is the patient Alert and Oriented? Yes * How many steps to enter\exit or inside your home? 0/0 * Preadmission Environment Home with Family * ADLs Independent * Equipment Crutch * List name and contact numbers for known caregivers / representatives who currently or will assist patient after discharge: Marina GALARZA [phone] * Verbal permission to speak to the caregivers and representatives has been obtained from the patient. Yes * Community resources currently utilized None * Additional services required to return to the preadmission environment? No * Can the patient safely return to the preadmission environment? Yes * Has this patient been hospitalized within the prior 30 days at any hospital? No Coverage Notice Reviewer: [id number] Alyssa Payne Notice Issued Date-Time: 01/03/2020 8:30 Notice Type: Medicare Outpatient Observation Notice Notice Delivered To: Patient Relationship to Patient: Android Ios Developer Name: Delivery Method: PHONE - Phone Chiquis Days: Prior Verbal Notification: Yes Recipient Understood Notice: Yes Recipient Signature: Med Rec Note Co-signed by Attending: Coverage Notice Comment: VERDUZCO SERVED, EXPLAINED, AND SIGNED BY PATIENT. THE ORIGINAL WAS PROVIDED TO THE PATIENT AND COPY PLACED ON CHART. Reviewer: [id number] - Charline Payne Notice Issued Date-Time: 01/03/2020 14:20 Notice Type: Patient Choice Letter Notice Delivered To: Patient Relationship to Patient: Android Ios Developer Name: Delivery Method: PHONE - Phone Chiquis Days: Prior Verbal Notification: Yes Recipient Understood Notice: Yes Recipient Signature: Med Rec Note Co-signed by Attending: Coverage Notice Comment: MARQUITA REFUSAL SIGNED FOR HH Last DP export: 01/03/20 2:31 pm Patient Name: Joe BIRCH Page [id number] at 0901 All edits/amendments must be made on the electronic document DICTATION DATE: 01/04/20900 LIBRARY SALES CONSULTANT: MICKI 01/04/20900 RPT#: [id number] DC DATE: STATUS: ADM IN [facility] [address] [place] [address] END OF REPORT
[2020-01-04] MEDS ORDERED: EFFIENT10 MG PO (10:23)
[2020-01-04] MEDS ORDERED: ASPIRIN325 MG PO (10:24)
--- NOTE | 2020-01-04 11:07 | NUR ---
COVID-19 DISCHARGE INSTRUCTION SHEET AND PAPER TO SIGN GIVEN TO PRIMARY NURSE TO GIVE TO PATIENT.
--- NOTE | 2020-01-05 08:11 | MORECARE ---
CASE MANAGEMENT DISCHARGE SUMMARY PATIENT: Joe BIRCH UNIT: [id number] ADM DATE: 01/03/20 AGE: 69 : 54 SEX: M ROOM/BED: D.1619 AUTHOR: JAKOB RANDLE PHYSICIAN: REFERRING PHYSICIAN: CAROLINE CHATTERJEE MD DATE OF SERVICE: 01/05/20 Discharge Plan Patient Name: Joe BIRCH Facility: [facility]:[place] : 1950 Planned Disposition: Anticipated Discharge Date: Discharge Date: 01/04/2020 Expected LOS: 0 Initial Reviewer: [email or web address] Initial Review Date: 01/02/2020 Generated: 01/05/20 9:10 am Comments DCP- Discharge Planning Updated by [id number]: Charline Payne on 01/03/20 2:[address] Patient Name: Joe BIRCH Admission Status: ER Accout number: [id number] Admission Date: 01-03-2020 : 1950 Admission Diagnosis: Attending: CAROLINE CHATTERJEE Current LOS: 1 Anticipated DC Date: Planned Disposition: Primary Insurance: MEDICARE A & B Discharge Planning Comments: CM met with patient to complete initial dc planning assessment. CM educated patient on the CM role and verbal consent given by patient to complete assessment. CM verified patient's address, phone number, and emergency contact phone numbers. Patient lives at home with his girlfriend Marina [phone] . At discharge patient plans to return home and feels this is a safe discharge. CM discussed availability of home health, rehab services, and medical equipment. Pt stated he is having difficulty walking at home because of his knees. refused - MARQUITA signed. Patient denied known discharge needs at this time. Transportation provider at discharge will be Marina . CM will continue to follow and will assist as needed with dc plans/needs. Hair Boiler: Charline Payne MSN, RN, CM DCPIA - Discharge Planning Initial Assessment Updated by [email or web address]: Charline Payne on 01/03/20 3:19 pm * Is the patient Alert and Oriented? Yes * How many steps to enter\exit or inside your home? 0/0 * Preadmission Environment Home with Family * ADLs Independent * Equipment Crutch * List name and contact numbers for known caregivers / representatives who currently or will assist patient after discharge: Marina GALARZA [phone] * Verbal permission to speak to the caregivers and representatives has been obtained from the patient. Yes * Community resources currently utilized None * Additional services required to return to the preadmission environment? No * Can the patient safely return to the preadmission environment? Yes * Has this patient been hospitalized within the prior 30 days at any hospital? No Coverage Notice Reviewer: [email or web address] Alyssa Payne Notice Issued Date-Time: 01/03/2020 8:30 Notice Type: Medicare Outpatient Observation Notice Notice Delivered To: Patient Relationship to Patient: Box Cutter Name: Delivery Method: PHONE - Phone Chiquis Days: Prior Verbal Notification: Yes Recipient Understood Notice: Yes Recipient Signature: Med Rec Note Co-signed by Attending: Coverage Notice Comment: VERDUZCO SERVED, EXPLAINED, AND SIGNED BY PATIENT. THE ORIGINAL WAS PROVIDED TO THE PATIENT AND COPY PLACED ON CHART. Reviewer: [email or web address] Alyssa Payne Notice Issued Date-Time: 01/03/2020 14:20 Notice Type: Patient Choice Letter Notice Delivered To: Patient Relationship to Patient: Box Cutter Name: Delivery Method: PHONE - Phone Chiquis Days: Prior Verbal Notification: Yes Recipient Understood Notice: Yes Recipient Signature: Med Rec Note Co-signed by Attending: Coverage Notice Comment: MARQUITA REFUSAL SIGNED FOR HH Last DP export: 01/04/20 8:01 am Patient Name: Joe BIRCH Page [id number] at 0811 All edits/amendments must be made on the electronic document DICTATION DATE: 01/05/20809 TECHNICAL TRAINER: MICKI 01/05/20809 RPT#: [id number] DC DATE:01/04/20 STATUS: DIS IN [facility] [address] [place] [address] END OF REPORT
== END 2020-01-04 14:09 | disposition home or self-care (01) | DRG 251 ==
LOC: D.ER 17:54 → OBSVTIME 18:59 → D.M2 18:59
PROVIDERS: Family Medicine; Internal Medicine Cardiovascular Disease; Internal Medicine Interventional Cardiology; ADMIT Internal Medicine Nephrology; ATTEND Internal Medicine Nephrology
PROC: B2151ZZ Fluoroscopy of Left Heart using Low Osmolar Contrast (ICD-10-PCS; 2020-01-03)
PROC: 4A023N7 Measurement of Cardiac Sampling and Pressure, Left Heart, Percutaneous Approach (ICD-10-PCS; 2020-01-03)
PROC: B2111ZZ Fluoroscopy of Multiple Coronary Arteries using Low Osmolar Contrast (ICD-10-PCS; principal; 2020-01-03 12:15)
PROC: 02703ZZ Dilation of Coronary Artery, One Artery, Percutaneous Approach (ICD-10-PCS; 2020-01-03 12:15)
DX: I21.A9 Other myocardial infarction type (principal); I97.190 Other postprocedural cardiac functional disturbances following cardiac surgery; F17.203 Nicotine dependence unspecified, with withdrawal; T82.867A Thrombosis due to cardiac prosthetic devices, implants and grafts, initial encounter; D64.9 Anemia, unspecified; I25.10 Atherosclerotic heart disease of native coronary artery without angina pectoris; I10 Essential (primary) hypertension